=== PATIENT | female | born 1975 | race Caucasian/White ===

== ENCOUNTER 2018-02-14 09:29 | Outpatient (REF) | payer MEDICARE, MEDICAID, SELFPAY ==
[2018-02-15 14:37] LABS: Campylobacter PCR SEE COMMENTS; Salmonella PCR SEE COMMENTS; Shiga Toxin PCR SEE COMMENTS; Shigella/Enteroinvasive Ecoli SEE COMMENTS
== END 2018-02-14 09:49 ==
LOC: NCHCN 09:29
PROVIDERS: PCP Nurse Practitioner; Visit Provider Nurse Practitioner
DX: R11.2 Nausea with vomiting, unspecified (principal); R19.7 Diarrhea, unspecified
CPT/HCPCS: 87329; 87505; 87177; 87324

== ENCOUNTER 2018-03-06 15:40 | Outpatient (CLI) | payer MEDICARE, MEDICAID, SELFPAY ==
[2018-03-06 16:11] LABS: Abs Immature Grans 0.03 k/cumm (0.0-0.09); Absolute Basophil Count 0.02 k/cumm (0.0-0.2); Absolute Eosinophil Count 0.04 k/cumm (0.0-0.7); Absolute Lymphocyte Count 2.78 k/cumm (1.2-3.4); Absolute Neutrophil Count 7.56 k/cumm (1.2-6.7); Basophils % 0.2; Eosinophils % 0.4; HCT 37.2 % (36.0-46.0); HGB 11.8 g/dL (12.0-15.5); Immature Grans % 0.3; Lymphocytes % 25.2; Mean Corp. HGB Concentration 31.7 g/dL (32.0-36.0); Mean Corpuscular Hemoglobin 28.5 pg (27.0-33.0); Mean Corpuscular Volume 89.9 fL (80-95); Mean Platelet Volume 9.3 fL (8.0-11.0); Monocytes % 5.4; Neutrophils % 68.5; Platelet Count 345 x1000/uL (130-400); RBC 4.14 m/cumm (4.00-5.20); RBC Distribution Width 14.2 % (11.7-14.6); White Blood Cell Count 11.04 k/cumm (4.4-10.8)
== END 2018-03-06 16:00 ==
PROVIDERS: Obstetrics & Gynecology; PCP Nurse Practitioner; Visit Provider Psychiatry & Neurology Psychiatry
DX: R10.9 Unspecified abdominal pain (principal)
CPT/HCPCS: 36415; 85025

== ENCOUNTER 2018-03-06 17:10 | Outpatient (REF) | payer MEDICARE, MEDICAID, SELFPAY ==
[2018-03-08 15:56] LABS: Chlamydia Result Negative; GC Result Negative; Specimen Description CERVIX
== END 2018-03-06 17:30 ==
LOC: LBN 17:10
PROVIDERS: Obstetrics & Gynecology; PCP Nurse Practitioner; Visit Provider Psychiatry & Neurology Psychiatry
DX: R10.2 Pelvic and perineal pain (principal)
CPT/HCPCS: 87491; 87591; 87480; 87510; 87660

== ENCOUNTER 2018-03-08 00:46 | Outpatient (CLI) | payer MEDICARE, MEDICAID, SELFPAY ==
--- NOTE | 2018-03-08 13:04 | DI.US_ITS ---
SYMPTOMS/DIAGNOSIS: LOWER ABDOMINAL PAIN AND VAGINAL DISCHARGE, N89.8, R10.9 PELVIC ULTRASOUND: A transabdominal and transvaginal examination was carried out. The uterus measures 7.9 cm in length, 3.4 cm in height and 5.3 cm in width with an endometrial stripe thickness of 3.8 mm. There are a number of small nabothian cysts. Uterine retroversion is demonstrated. The right ovary measures 2.2 x 2 x 2.4 cm, the left ovary 2.7 x 1.8 x 2.4 cm. No abnormality is seen. Incidental note is made of a 1.5 cm gallstone projected over the neck of the gallbladder. SUMMARY: Nabothian cysts are identified in a retroverted uterus. Incidental note is made of cholelithiasis.
== END 2018-03-08 01:06 ==
PROVIDERS: PCP Nurse Practitioner; Visit Provider Obstetrics & Gynecology
DX: R10.30 Lower abdominal pain, unspecified (principal); N88.8 Other specified noninflammatory disorders of cervix uteri; K80.20 Calculus of gallbladder without cholecystitis without obstruction; N85.4 Malposition of uterus
CPT/HCPCS: 76830; 76856

== ENCOUNTER 2018-03-08 14:50 | Outpatient (CLI) | payer MEDICARE, MEDICAID, SELFPAY ==
[2018-03-08 15:34] LABS: Abs Immature Grans 0.02 k/cumm (0.0-0.09); Absolute Basophil Count 0.02 k/cumm (0.0-0.2); Absolute Eosinophil Count 0.05 k/cumm (0.0-0.7); Absolute Lymphocyte Count 2.38 k/cumm (1.2-3.4); Basophils % 0.3; Eosinophils % 0.7; HCT 33.9 % (36.0-46.0); HGB 10.4 g/dL (12.0-15.5); Immature Grans % 0.3; Lymphocytes % 31.4; Mean Corp. HGB Concentration 30.7 g/dL (32.0-36.0); Mean Corpuscular Hemoglobin 27.8 pg (27.0-33.0); Mean Corpuscular Volume 90.6 fL (80-95); Mean Platelet Volume 9.4 fL (8.0-11.0); Monocytes % 5.3; Platelet Count 286 x1000/uL (130-400); RBC 3.74 m/cumm (4.00-5.20); RBC Distribution Width 13.8 % (11.7-14.6); White Blood Cell Count 7.57 k/cumm (4.4-10.8)
== END 2018-03-08 15:10 ==
PROVIDERS: PCP Nurse Practitioner; Visit Provider Obstetrics & Gynecology
DX: R10.9 Unspecified abdominal pain (principal)
CPT/HCPCS: 36415; 76830; 76856; 85025

== ENCOUNTER 2018-03-21 11:06 | Emergency (ER) | payer MEDICARE, MEDICAID, SELFPAY ==
[2018-03-21 11:24] VITALS: BP 114/67; PULSE 100; RESP 16; TEMP 36.6; O2SAT 98
--- NOTE | 2018-03-21 11:42 | DI.US_ITS ---
SYMPTOMS/DIAGNOSIS: VAGINAL BLEEDING, RIGHT PELVIC PAIN PELVIC ULTRASOUND: Transabdominal and transvaginal examination was performed. The uterus measures 6.3 cm long x 4.4 cm AP x 6 cm transverse. The endometrial stripe is within normal limits at 0.3 cm. There are two discrete uterine fibroids identified. The largest measures 1 x 0.8 x 1.4 cm and is located in the anterior body. The smaller, located in the posterior body, measures 0.8 x 0.9 x 1.0 cm. The uterus is retroverted. The right ovary measures 2.5 x 1.6 x 2.1 cm, the left ovary measures 2.7 x 1.4 x 1.6 cm. There are small follicular cysts present. There is normal blood flow. No evidence of a solid mass or torsion is identified. No free pelvic fluid or hydronephrosis is identified. There are cervical nabothian cysts present. IMPRESSION: Fibroid uterus.
[2018-03-21 11:58] LABS: Bilirubin Negative (Negative); Blood Large (Negative); Clarity Sl Cloudy; Glucose Negative (Negative); Ketones Negative (Negative); Leukocyte Esterase Negative (Negative); Nitrite Negative (Negative); Specific Gravity >= 1.030 (1.005-1.025); Urobilinogen 0.2 EU/dL (Up TO 0.2)
[2018-03-21 12:09] LABS: Bacteria Moderate HPF (Negative); C & S Indicated? No/Sq. Contamination; Crystals Negative HPF (Negative); Epithelial Cells Many HPF (Negative); Mucus Moderate (Negative)
[2018-03-21] MEDS: Normal Saline 1,000 ML 1000 ML IV (12:14)
[2018-03-21] MEDS: Ketorolac 15 MG/ML VIAL IVP (12:15)
[2018-03-21 12:22] LABS: Abs Immature Grans 0.01 k/cumm (0.0-0.09); Absolute Basophil Count 0.01 k/cumm (0.0-0.2); Absolute Eosinophil Count 0.03 k/cumm (0.0-0.7); Absolute Lymphocyte Count 1.76 k/cumm (1.2-3.4); Absolute Monocyte Count 0.34 k/cumm (0.11-0.7); Absolute Neutrophil Count 5.95 k/cumm (1.2-6.7); Basophils % 0.1; Eosinophils % 0.4; HCT 34.6 % (36.0-46.0); HGB 10.8 g/dL (12.0-15.5); Immature Grans % 0.1; Lymphocytes % 21.7; Mean Corp. HGB Concentration 31.2 g/dL (32.0-36.0); Mean Corpuscular Hemoglobin 28.3 pg (27.0-33.0); Mean Corpuscular Volume 90.6 fL (80-95); Monocytes % 4.2; Neutrophils % 73.5; Platelet Count 243 x1000/uL (130-400); RBC 3.82 m/cumm (4.00-5.20)
[2018-03-21 12:35] LABS: ALT 25 U/L (12-78); AST 22 U/L (15-37); Albumin 3.2 g/dL (3.4-5.0); Alkaline Phosphatase 93 U/L (46-116); Anion Gap 11.5 mmol/L (3-11); BUN 12 mg/dL (7-18); Bilirubin, Total 0.3 mg/dL (0.2-1.0); CO2 22.5 mmol/L (21.0-32.0); CREATININE 0.93 mg/dL (0.55-1.02); Chloride 105 mmol/L (98-107); Glucose 83 mg/dL (70-100); Lipase 85 U/L (73-393); Sodium 139 mmol/L (136-145); Total Protein 7.1 g/dL (6.4-8.2)
--- NOTE | 2018-03-21 14:15 | W.ED.GENAD ---
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 Clinical Impression: Vaginal bleeding, Fibroid Primary Care Provider: Nemo Carl ED Provider: Khoa Riggins Home Meds and New Rx's Prescriptions: New ibuprofen [Motrin IB] 200 MG tablet 800 mg PO Q6H 5 Days Qty: 80 RF: 0 No Action acetaminophen-codeine [Tylenol-Codeine #3] 300-30 mg tablet 1 tab PO Q6H PRN (Reason: pain) Qty: 8 RF: 0 polyethylene glycol 3350 [Miralax] 17 gram powder in packet 17 gm PO DAILY Qty: 30 RF: 1 norgestimate-ethinyl estradiol [Sprintec (28)] 1 EACH tablet 1 tab-cap PO DAILY Qty: 3 RF: 4 promethazine 25 MG tablet 25 mg PO Q6H PRNQty: 10 RF: 0 bupropion HCl 150 MG tablet extended release 12 hr 450 mg PO DAILY RF: 0 gabapentin 600 MG tablet 600 mg PO TID RF: 0 sucralfate 1 GM tablet 1 gm PO BID RF: 0 sumatriptan succinate [Imitrex] 25 MG tablet 50 mg PO DIRECTED PRNRF: 0 ondansetron HCl 4 MG tablet 4 mg PO TID PRNRF: 0 clonazepam 0.5 MG tablet 0.5 mg PO BID PRNRF: 0 propranolol 10 MG tablet 20 mg PO BID RF: 0 mirtazapine 30 MG tablet 30 mg PO DAILY RF: 0 fluticasone [Flonase Allergy Relief] 9.9 ML spray,suspension 9.9 ml NS DAILY RF: 0 prazosin 2 MG capsule 2 mg PO DAILY RF: 0 Discharge Instructions Instructions: Dysfunctional Uterine Bleeding (ED) Additional Instructions: Please take the medication as directed. Please follow-up with your obstetrics tissue technician tomorrow. If you notice any worsening of your symptoms, or any new symptoms such as vomiting, diarrhea, fever, chills, shortness of breath, chest pain, numbness, weakness, or fainting , please return immediately to the emergency department for reevaluation. Please follow up with your primary care provider as soon as possible for reassessment and reevaluation. As always, it was a pleasure participating in your medical care today. Referrals: Nemo Carl [Primary Care Provider] - Discharge Data Discharge Date/Time-TO BE ENTERED AT DEPARTURE: 03/21/18 14:41 Medical Decision Making This is a pleasant 22-year-old female who presents with 1 day vaginal bleeding. She regularly takes oral contraceptives and does not on her placebo week. Physical exam demonstrated normal vital signs, no signs of tachycardia. Hemoglobin was stable at 10.8, test was negative. Physical exam did demonstrate vaginal bleeding, minimal cervical right and left sided tenderness on bimanual exam. No signs of guarding or rebound. No evidence of lower abdominal tenderness on exam. Negative obturator and psoas signs. No pain at McBurney's point. Ultrasound was ordered and there was 2 discrete uterine fibroids that were noted. Endometrial stripe was within normal limits. A small right and left sided ovary were noted with small follicular cysts. No evidence of torsion. With the patient's vaginal bleeding mild, her age of 42, and her symptomatology I feel that she has been appropriately resuscitated and evaluated here. We will hold off on giving any TXA secondary to the increase in thromboembolic event secondary to her estrogen use. With her bleeding very mild, her hemoglobin stable, and her vital signs stable I feel that close follow-up is both reasonable and certainly indicated. She has called her obstetrics tissue technician and has an appointment scheduled for tomorrow morning. We have a long discussion regarding red flags which to return the patient understands. I have extensively reviewed the treatment plan and discharge instructions with the patient and their family. I have addressed all patient concerns at this time. The patient and family was made aware of what symptoms to monitor for that would warrant a return to the emergency department. Discussed the plan with the patient and family, they demonstrate verbal understanding and agreement with our assessment and plan at this time. PELVIC ULTRASOUND: Transabdominal and transvaginal examination was performed. The uterus measures 6.3 cm long x 4.4 cm AP x 6 cm transverse. The endometrial stripe is within normal limits at 0.3 cm. There are two discrete uterine fibroids identified. The largest measures 1 x 0.8 x 1.4 cm and is located in the anterior body. The smaller, located in the posterior body, measures 0.8 x 0.9 x 1.0 cm. The uterus is retroverted. The right ovary measures 2.5 x 1.6 x 2.1 cm, the left ovary measures 2.7 x 1.4 x 1.6 cm. There are small follicular cysts present. There is normal blood flow. No evidence of a solid mass or torsion is identified. No free pelvic fluid or hydronephrosis is identified. There are cervical nabothian cysts present. IMPRESSION: Fibroid uterus. HPI General Date/Time Provider Initiated Documentation: 03/21/18 11:18. HPI Narrative: This is a pleasant 42-year-old female with a past medical history of PTSD, pelvic pain, migraines and depression who presents today for evaluation of vaginal bleeding. The bleeding started this morning. She normally takes oral contraceptives and has been taking this religiously and has not missed any doses. She is not currently on the placebo phase. She does have some mild pelvic pain which began last night, which is in the both the right pelvis and the left pelvis. She has had some associated vomiting but denies any diarrhea. She denies any recent intercourse, any recent STDs, any previous vaginal discharge. She denies any pelvic trauma. She has no other complaints at this time. She denies any aggravating or relieving symptoms. She denies seeing any tissue coming out in the vaginal bleeding, she does admit to seeing mild clots. She denies any IV or illicit drug use. Related Data Home Medications Medication Instructions Recorded Confirmed bupropion HCl 450 mg PO DAILY 03/14/17 03/21/18 clonazepam 0.5 mg PO BID PRN 03/14/17 03/21/18 fluticasone [Flonase Allergy 9.9 ml NS DAILY 03/14/17 03/21/18 Relief] gabapentin 600 mg PO TID 03/14/17 03/21/18 mirtazapine 30 mg PO DAILY 03/14/17 03/21/18 ondansetron HCl 4 mg PO TID PRN 03/14/17 03/21/18 prazosin 2 mg PO DAILY 03/14/17 03/21/18 propranolol 20 mg PO BID 03/14/17 03/21/18 sucralfate 1 gm PO BID 03/14/17 03/21/18 sumatriptan succinate [Imitrex] 50 mg PO DIRECTED PRN 03/14/17 03/21/18 promethazine 25 mg PO Q6H PRN #10 tab 01/06/18 03/21/18 norgestimate-ethinyl estradiol 1 tab-cap PO DAILY #3 pack 01/30/18 03/21/18 [Sprintec] acetaminophen 300 mg-codeine 30 mg 1 tab PO Q6H PRN #8 tab 03/06/18 03/21/18 tablet polyethylene glycol 3350 17 gram 17 gm PO DAILY #30 each 03/16/18 03/21/18 oral powder packet ibuprofen [Motrin Ib] 800 mg PO Q6H 5 Days #80 tab 03/21/18 Previous Rx's Medication Instructions Recorded promethazine 25 mg PO Q6H PRN #10 tab 01/06/18 norgestimate-ethinyl estradiol 1 tab-cap PO DAILY #3 pack 01/30/18 [Sprintec] acetaminophen 300 mg-codeine 30 mg 1 tab PO Q6H PRN #8 tab 03/06/18 tablet polyethylene glycol 3350 17 gram 17 gm PO DAILY #30 each 03/16/18 oral powder packet ibuprofen [Motrin Ib] 800 mg PO Q6H 5 Days #80 tab 03/21/18 Allergies Allergy/AdvReac Type Severity Reaction Status Date / Time Penicillins AdvReac Intermediate difficulty Unverified 03/21/18 11:31 breathing pain med AdvReac Unknown Uncoded 03/21/18 11:31 General Stated 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 3.ENT: Atraumatic external nose and ears. Moist MM. Neck: Symmetric, trachea midline, No thyromegaly. 4.CVS: +S1/S2, No murmurs or gallops. Peripheral pulses 2+ and equal in all extremities. Brisk capillary refill in all extremities. 5.RESP: Unlabored respiratory effort. Clear to auscultation bilaterally. No wheezes rales or rhonchi 6.GI: Soft, Nontender/Nondistended, No hepatosplenomegaly. No guarding or rebound. No right lower quadrant abdominal tenderness. No left lower quadrant abdominal tenderness. 7.MSK: Normocephalic/Atraumatic, Extremities w/o deformity or ttp No cyanosis or clubbing, Normal movement of all extremities 8.Skin: Warm, Dry. No rashes or lesions. 9.Neuro: hand upper and bottom lacer II-XII grossly intact. Sensation grossly intact, no focal neurologic deficits. 10.Psych: (AAO) x3. Appropriate mood and affect Gynecological exam: Vaginal exam was performed with female nurse at bedside. Cervix demonstrated no significant abnormalities, was mild bleeding coming from the cervix. Cervix was closed. Bimanual exam demonstrated mild tenderness on the right, as well as the left. Minimal cervical motion tenderness. No evidence of lacerations or trauma. Course Vital Signs Temperature 36.6 C 03/21/18 11:24 Pulse 100 H 03/21/18 11:24 Respiratory Rate 16 03/21/18 11:24 Blood Pressure 114/67 03/21/18 11:24 Pulse Oximetry 98 03/21/18 11:24 Temperature 36.6 C 03/21/18 11:24 Temperature Source Temporal Artery Scan 03/21/18 11:24 Pulse 100 H 03/21/18 11:24 Respiratory Rate 16 03/21/18 11:24 Respiratory Effort Non-Labored 03/21/18 11:26 Blood Pressure 114/67 03/21/18 11:24 Blood Pressure Position Sitting 03/21/18 11:24 Pulse Oximetry 98 03/21/18 11:24 Oxygen Delivery Method Room Air 03/21/18 11:24 Oxygen Flow Rate 0 03/21/18 11:24 Pain Level 10 03/21/18 12:15 Lab/Test Results Lab/Test Results: Laboratory Tests Range/Units 03/21/18 03/21/18 03/21/18 11:50 12:05 12:05 WBC (4.4-10.8) k/cumm 8.10 RBC (4.00-5.20) m/cumm 3.82 L Hgb (12.0-15.5) g/dL 10.8 L Hct (36.0-46.0) % 34.6 L MCV (80-95) fL 90.6 MCH (27.0-33.0) pg 28.3 MCHC (32.0-36.0) g/dL 31.2 L RDW (11.7-14.6) % 14.0 Plt Count (130-400) x1000/uL 243 MPV (8.0-11.0) fL 10.0 Immature Gran % 0.1 Neutrophils % 73.5 Lymphocytes % 21.7 Monocytes % 4.2 Eosinophils % 0.4 Basophils % 0.1 Absolute Neutrophils (1.2-6.7) k/cumm 5.95 Absolute Lymphocytes (1.2-3.4) k/cumm 1.76 Absolute Monocytes (0.11-0.7) k/cumm 0.34 Absolute Eosinophils (0.0-0.7) k/cumm 0.03 Absolute Basophils (0.0-0.2) k/cumm 0.01 Sodium (136-145) mmol/L 139 Potassium (3.5-5.1) mmol/L 4.0 Chloride (98-107) mmol/L 105 Carbon Dioxide (21.0-32.0) mmol/L 22.5 Anion Gap (3-11) mmol/L 11.5 H BUN (7-18) mg/dL 12 Creatinine (0.55-1.02) mg/dL 0.93 Estimated GFR/1.73 m2 (mL/min/1.73m2) >= 60.00 Glucose (70-100) mg/dL 83 Calcium (8.5-10.1) mg/dL 8.0 L Total Bilirubin (0.2-1.0) mg/dL 0.3 AST (15-37) U/L 22 ALT (12-78) U/L 25 Alkaline Phosphatase (46-116) U/L 93 Total Protein (6.4-8.2) g/dL 7.1 Albumin (3.4-5.0) g/dL 3.2 L Lipase (73-393) U/L 85 Urine Color (Yellow) Yellow Urine Clarity Sl cloudy Urine pH (5-8) 6.0 Ur Specific Sandy (1.005-1.025) >= 1.030 H Urine Protein (Negative) mg/dL Negative Urine Ketones (Negative) mg/dL Negative Urine Blood (Negative) Large H Urine Nitrite (Negative) Negative Urine Bilirubin (Negative) Negative Urine Urobilinogen (Up TO 0.2) EU/dL 0.2 Ur Leukocyte Esterase (Negative) Negative Urine RBC Not Applicable Urine WBC (0-5) HPF 10-20 Ur Epithelial Cells (Negative) HPF Many Urine Crystals (Negative) HPF Negative Urine Bacteria (Negative) HPF Moderate Urine Mucus (Negative) Moderate Ur Culture Indicated? No/sq. contamination Urine Glucose (Negative) mg/dL Negative Patient ABO/Rh Antibody Screen Range/Units 03/21/18 12:05 WBC (4.4-10.8) k/cumm RBC (4.00-5.20) m/cumm Hgb (12.0-15.5) g/dL Hct (36.0-46.0) % MCV (80-95) fL MCH (27.0-33.0) pg MCHC (32.0-36.0) g/dL RDW (11.7-14.6) % Plt Count (130-400) x1000/uL MPV (8.0-11.0) fL Immature Gran % Neutrophils % Lymphocytes % Monocytes % Eosinophils % Basophils % Absolute Neutrophils (1.2-6.7) k/cumm Absolute Lymphocytes (1.2-3.4) k/cumm Absolute Monocytes (0.11-0.7) k/cumm Absolute Eosinophils (0.0-0.7) k/cumm Absolute Basophils (0.0-0.2) k/cumm Sodium (136-145) mmol/L Potassium (3.5-5.1) mmol/L Chloride (98-107) mmol/L Carbon Dioxide (21.0-32.0) mmol/L Anion Gap (3-11) mmol/L BUN (7-18) mg/dL Creatinine (0.55-1.02) mg/dL Estimated GFR/1.73 m2 (mL/min/1.73m2) Glucose (70-100) mg/dL Calcium (8.5-10.1) mg/dL Total Bilirubin (0.2-1.0) mg/dL AST (15-37) U/L ALT (12-78) U/L Alkaline Phosphatase (46-116) U/L Total Protein (6.4-8.2) g/dL Albumin (3.4-5.0) g/dL Lipase (73-393) U/L Urine Color (Yellow) Urine Clarity Urine pH (5-8) Ur Specific Sandy (1.005-1.025) Urine Protein (Negative) mg/dL Urine Ketones (Negative) mg/dL Urine Blood (Negative) Urine Nitrite (Negative) Urine Bilirubin (Negative) Urine Urobilinogen (Up TO 0.2) EU/dL Ur Leukocyte Esterase (Negative) Urine RBC Urine WBC (0-5) HPF Ur Epithelial Cells (Negative) HPF Urine Crystals (Negative) HPF Urine Bacteria (Negative) HPF Urine Mucus (Negative) Ur Culture Indicated? Urine Glucose (Negative) mg/dL Patient ABO/Rh A Positive Antibody Screen Negative
[2018-03-21 14:40] VITALS: BP 118/67; PULSE 74; RESP 18; TEMP 36.8; O2SAT 98
== END 2018-03-21 14:41 | disposition home or self-care (01) ==
PROVIDERS: Emergency Provider Student in an Organized Health Care Education/Training Program; PCP Nurse Practitioner
DX: N93.9 Abnormal uterine and vaginal bleeding, unspecified (principal); D25.9 Leiomyoma of uterus, unspecified; R10.2 Pelvic and perineal pain
CPT/HCPCS: 36415; 80053; 81025; 83690; 86850; 86900; 86901; 96361; 96374; 99284; 76830; 76856; 81003; 81015; 85025; 99285; J1885

== ENCOUNTER 2018-12-27 10:21 | Emergency (ER) | payer MEDICARE, SELFPAY ==
[2018-12-27] VITALS (32 sets, daily range): BP systolic 121–152; BP diastolic 69–97; PULSE 83–123; RESP 12–30; TEMP 36.2; O2SAT 92–100
--- NOTE | 2018-12-27 10:34 | ED.GENADUL_ITS ---
Discharge Plan Disposition Patient Disposition: HOME Condition: Improving Discharge Details Chief Complaint: DrugWithdr Clinical Impression: Anxiety, Medication refill, Vomiting and diarrhea Primary Care Provider: Nemo Carl ED Provider: Eunice Hu Home Meds and New Rx's Prescriptions: Continued acetaminophen-codeine [Tylenol-Codeine #3] 300-30 mg tablet 1 tab PO Q6H PRN (Reason: pain) Qty: 8 RF: 0 polyethylene glycol 3350 [Miralax] 17 gram powder in packet 17 gm PO DAILY Qty: 30 RF: 1 norgestimate-ethinyl estradiol [Sprintec (28)] 1 EACH tablet 1 tab-cap PO DAILY Qty: 3 RF: 4 Prilosec OTC 20 mg Tablet,Delayed Release (Dr/Ec) 20 mg PO DAILY RF: 0 bupropion HCl 150 MG tablet extended release 12 hr 450 mg PO DAILY Qty: 30 RF: 0 propranolol 10 MG tablet 20 mg PO BID Qty: 30 RF: 0 mirtazapine 30 MG tablet 30 mg PO DAILY Qty: 30 RF: 0 promethazine 25 MG tablet 25 mg PO Q6H PRN (Reason: nausea and vomiting) Qty: 10 RF: 0 prazosin 2 MG capsule 2 mg PO DAILY Qty: 30 RF: 0 gabapentin 600 MG tablet 600 mg PO TID RF: 0 sucralfate 1 GM tablet 1 gm PO BID RF: 0 sumatriptan succinate [Imitrex] 25 MG tablet 50 mg PO DIRECTED PRNRF: 0 ondansetron HCl 4 MG tablet 4 mg PO TID PRNRF: 0 clonazepam 0.5 MG tablet 0.5 mg PO BID PRNRF: 0 fluticasone propionate [Flonase Allergy Relief] 9.9 ML spray,suspension 9.9 ml NS DAILY RF: 0 Discharge Instructions Instructions: Acute Nausea and Vomiting (ED), Anxiety (ED), Medicine Refill (ED) Additional Instructions: Call [facility] today to schedule follow-up appointment for reevaluation and for continued management of your medications. Return to the emergency department if you develop any worsening or new concerning symptoms. Discharge Data Discharge Date/Time-TO BE ENTERED AT DEPARTURE: 12/27/18 14:41 Discharge Physician: Eunice Hu Medical Decision Making 43yo F with a history of anxiety, depression, borderline personality disorder, PTSD and migraines who presents with shaking, insomnia, vomiting and diarrhea for the past week after running out of most of her medications except gabapentin and Prilosec 4 weeks ago while in the process of changing doctors. Blood pressure hypertensive heart rate tachycardic. Improved to low 100s upon my evaluation. Denies any complaint of chest pain or shortness of breath so doubt PE, dissection or ACS. Patient appears very anxious and tearful but she denies any suicidal homicidal ideation. Differential diagnosis can include anxiety, medication withdrawal, dehydration, electrolyte abnormality. Will check screening labs, EKG, urine test and give fluids and a dose of Ativan and reassess. EKG notes a rate of 96, sinus with no acute ST-T wave ischemic changes. 1130 -- pt states she feels a little better. Appears more relaxed. Still nauseous -dose of compazine ordered. Labs reviewed. CO2 20, AG 14. Glucose 102. Remainder of labs unremarkable. Urine preg negative. 1315 -- pt feels much better. Vitals within normal limits. Will recheck BMP. Pt able to drink water and no vomiting. 1400 -- repeat bmp anion gap near normalized. Pt states she feels good to go home but c/o some return of nausea. Pt given zofran and improved. HR 90s. She appears much more comfortable. Her friends are picking her up. Will give scripts for her meds needing to be filled as well as a few tabs of ativan. She is instructed to f/u with [facility] for re-evaluation and continued medication management. Meds refilled Wellbutrin, mirtazapine, prazosin, promethazine, propranolol. She was also given 3 tabs of Ativan 0.5 mg. Medical Records Medical records reviewed: Yes I reviewed the patient's medical records. Lab Data Lab results reviewed: Yes I reviewed the patient's lab results. Laboratory Tests Range/Units 12/27/18 12/27/18 12/27/18 10:55 10:55 13:20 WBC (4.4-10.8) k/cumm 6.93 RBC (4.00-5.20) m/cumm 4.47 Hgb (12.0-15.5) g/dL 12.1 Hct (36.0-46.0) % 37.6 MCV (80-95) fL 84.1 MCH (27.0-33.0) pg 27.1 MCHC (32.0-36.0) g/dL 32.2 RDW (11.7-14.6) % 16.1 H Plt Count (130-400) x1000/uL 266 MPV (8.0-11.0) fL 9.6 Immature Gran % 0.0 Neutrophils % 66.2 Lymphocytes % 27.8 Monocytes % 5.2 Eosinophils % 0.7 Basophils % 0.1 Absolute Neutrophils (1.2-6.7) k/cumm 4.58 Absolute Lymphocytes (1.2-3.4) k/cumm 1.93 Absolute Monocytes (0.11-0.7) k/cumm 0.36 Absolute Eosinophils (0.0-0.7) k/cumm 0.05 Absolute Basophils (0.0-0.2) k/cumm 0.01 Sodium (136-145) mmol/L 139 139 Potassium (3.5-5.1) mmol/L 3.7 3.9 Chloride (98-107) mmol/L 104 107 Carbon Dioxide (21.0-32.0) mmol/L 20.6 L 20.3 L Anion Gap (3-11) mmol/L 14.4 H 11.7 H BUN (7-18) mg/dL 12 10 Creatinine (0.55-1.02) mg/dL 0.79 0.63 Estimated GFR/1.73 m2 (mL/min/1.73m2) >= 60.00 >= 60.00 Glucose (70-100) mg/dL 102 H 83 Calcium (8.5-10.1) mg/dL 9.3 7.9 L ECG Data Attestation: I personally reviewed and interpreted this ECG (s) as follows: Interpretation: Rate of 96, sinus, no acute ST elevation or depression. QTc 430. QRS 90. HPI General Mode of arrival: ambulatory . Date/Time Provider Initiated Documentation: 12/27/18 10:24 . Limitations to Documentation: no limitations . Information obtained by: patient . HPI Narrative: Pt is a 43yo F who presents to the ED w/ a c/o shaking, nausea, vomiting, insomnia over the past week, worse over the past 2 days. Patient attributes her symptoms to stopping all of her medications 4 weeks ago when she ran out. Patient states she is in the process of changing her primary care doctor. Patient states she had been seeing a doctor at [place] but was planning on moving but changed her mind and now plans to follow-up with [facility] but has not yet made an appointment. Patient states she has run out of her Wellbutrin, clonazepam, Remeron, prazosin, Phenergan, propranolol and Imitrex. Patient denies a history of hypertension and states she takes most of her medications for anxiety, depression and migraines. She denies any recent travel, recent surgery, leg pain or swelling, shortness of breath, chest pain, abdominal pain, neck pain, sore throat, cough, urinary symptoms. Related Data Home Medications Medication Instructions Recorded Confirmed clonazepam 0.5 mg PO BID PRN 03/14/17 12/27/18 fluticasone propionate [Flonase 9.9 ml NS DAILY 03/14/17 12/27/18 Allergy Relief] gabapentin 600 mg PO TID 03/14/17 12/27/18 ondansetron HCl 4 mg PO TID PRN 03/14/17 12/27/18 sucralfate 1 gm PO BID 03/14/17 12/27/18 sumatriptan succinate [Imitrex] 50 mg PO DIRECTED PRN 03/14/17 12/27/18 norgestimate-ethinyl estradiol 1 tab-cap PO DAILY #3 pack 01/30/18 12/27/18 [Sprintec (28)] acetaminophen 300 mg-codeine 30 mg 1 tab PO Q6H PRN #8 tab 03/06/18 12/27/18 tablet polyethylene glycol 3350 17 gram 17 gm PO DAILY #30 each 03/16/18 12/27/18 oral powder packet Prilosec OTC 20 mg PO DAILY 12/27/18 12/27/18 bupropion HCl 450 mg PO DAILY #30 tab 12/27/18 mirtazapine 30 mg PO DAILY #30 tab 12/27/18 prazosin 2 mg PO DAILY #30 cap 12/27/18 promethazine 25 mg PO Q6H PRN #10 tab 12/27/18 propranolol 20 mg PO BID #30 tab 12/27/18 Previous Rx's Medication Instructions Recorded norgestimate-ethinyl estradiol 1 tab-cap PO DAILY #3 pack 01/30/18 [Sprintec (28)] acetaminophen 300 mg-codeine 30 mg 1 tab PO Q6H PRN #8 tab 03/06/18 tablet polyethylene glycol 3350 17 gram 17 gm PO DAILY #30 each 03/16/18 oral powder packet bupropion HCl 450 mg PO DAILY #30 tab 12/27/18 mirtazapine 30 mg PO DAILY #30 tab 12/27/18 prazosin 2 mg PO DAILY #30 cap 12/27/18 promethazine 25 mg PO Q6H PRN #10 tab 12/27/18 propranolol 20 mg PO BID #30 tab 12/27/18 Allergies Allergy/AdvReac Type Severity Reaction Status Date / Time Penicillins AdvReac Intermediate difficulty Unverified 12/27/18 10:29 breathing bees Allergy Uncoded 12/27/18 10:29 pain med AdvReac Unknown Uncoded 12/27/18 10:29 General Stated Complaint: DrugWithdr JAYLON: 3 Review of Systems Review of Systems All systems reviewed & are unremarkable except as noted in HPI and below Constitutional Reports as per HPI, Denies chills, Reports difficulty sleeping, Denies fever(s), Reports headache(s) and Reports poor appetite Eyes Denies blurry vision ENT Denies dizziness, Reports headache(s), Denies sore throat and Denies throat swelling Cardiovascular Denies chest pain and Denies dyspnea Respiratory Denies cough and Denies dyspnea Gastrointestinal Denies abdominal pain, Reports diarrhea and Reports vomiting Genitourinary Denies hematuria and Denies dysuria Musculoskeletal Denies back pain and Denies numbness Integumentary/Breasts Denies lesions and Denies rash Neurologic Denies dizziness, Reports headache(s), Denies focal weakness and Denies numbness Allergic/Immunologic Denies throat swelling [facility] Medical History ADD (attention deficit disorder) (Acute) Anxiety (Acute 12/29/17) Borderline personality disorder (Acute 12/29/17) Depression (Acute 12/29/17) Migraine without status migrainosus, not intractable (Acute 12/29/17) Pelvic pain (Acute) Pelvic pain (Acute 12/29/17) PTSD (post-traumatic stress disorder) (Acute 12/29/17) Surgical History section (Chronic ~2000) History of tonsillectomy (Chronic) Social History Smoking/Tobacco Use Status: Never Alcohol Intake: never Drug use: Never current occupation: UnEmployed Do you feel safe in your relationship?: Yes Exam Const General: cooperative, healthy appearing and anxious Orientation: alert, awake and oriented x3 HENMT Head: normal to inspection Ears: hearing grossly normal bilaterally, external ears normal and TM's normal bilaterally General nose exam: external nose normal Face and sinus: normal facial exam Mouth: oral mucosae normal Teeth and gingiva: dentition normal Throat: posterior oropharynx normal Eyes General: appearance normal, both eyes and all related structures Eyelids: eyelids normal Pupils: PERRL EOM: EOM intact bilaterally Neck Neck: normal visual inspection Lymphatic: no lymphadenopathy noted Chest Chest: normal inspection of the chest Resp Effort & Inspection: normal respiratory effort and able to speak in complete sentences Auscultation: clear to auscultation bilaterally Cardio Rate: regular rate Rhythm: regular rhythm GI Inspection: normal to inspection Palpation: soft, not firm, no guarding, no hepatosplenomegaly, no masses and nontender Auscultation: normal bowel sounds Back/Spine/Pelvis Back: no CVA tenderness Skin General skin exam: no rashes or lesions noted Neuro General: alert, awake and CN's II-XI intact bilaterally Cognition: normal cognition Speech: speech normal Gait: normal gait Motor: muscle tone normal throughout and strength 5/5 throughout Sensory Exam: no sensory deficits noted Extrem General: normal to inspection, full ROM, normal capillary refill and no edema Psych Appearance: grossly normal Mental Status: mental status grossly normal Speech and Movement: speech and movement normal Mood: anxious mood Affect: anxious affect Thought Process: normal Course Vital Signs Temperature 97.2 F L 12/27/18 10:26 Pulse 123 H 12/27/18 10:26 Respiratory Rate 14 12/27/18 10:26 Blood Pressure 152/96 H 12/27/18 10:26 Pulse Oximetry 97 12/27/18 10:26 Temperature 97.2 F L 12/27/18 10:26 Temperature Source Tympanic 12/27/18 10:26 Pulse 123 H 12/27/18 10:26 Respiratory Rate 14 12/27/18 10:26 Respiratory Effort Non-Labored 12/27/18 10:26 Blood Pressure 152/96 H 12/27/18 10:26 Blood Pressure Position Supine 12/27/18 10:26 Pulse Oximetry 97 12/27/18 10:26 Oxygen Delivery Method Room Air 12/27/18 10:26 Oxygen Flow Rate 0 12/27/18 10:26 Pain Level 5 12/27/18 10:26
[2018-12-27] MEDS: Normal Saline 1,000 ML 1000 ML IV (11:00)
[2018-12-27] MEDS: LORazepam 2 MG/ML VIAL 1 MG IVP (11:01)
[2018-12-27 11:07] LABS: Absolute Basophil Count 0.01 k/cumm (0.0-0.2); Absolute Eosinophil Count 0.05 k/cumm (0.0-0.7); Absolute Lymphocyte Count 1.93 k/cumm (1.2-3.4); Absolute Monocyte Count 0.36 k/cumm (0.11-0.7); Absolute Neutrophil Count 4.58 k/cumm (1.2-6.7); Basophils % 0.1; Eosinophils % 0.7; HCT 37.6 % (36.0-46.0); HGB 12.1 g/dL (12.0-15.5); Lymphocytes % 27.8; Mean Corp. HGB Concentration 32.2 g/dL (32.0-36.0); Mean Corpuscular Hemoglobin 27.1 pg (27.0-33.0); Mean Corpuscular Volume 84.1 fL (80-95); Mean Platelet Volume 9.6 fL (8.0-11.0); Monocytes % 5.2; Neutrophils % 66.2; Platelet Count 266 x1000/uL (130-400); RBC 4.47 m/cumm (4.00-5.20); RBC Distribution Width 16.1 % (11.7-14.6); White Blood Cell Count 6.93 k/cumm (4.4-10.8)
[2018-12-27 11:19] LABS: Anion Gap 14.4 mmol/L (3-11); BUN 12 mg/dL (7-18); CO2 20.6 mmol/L (21.0-32.0); CREATININE 0.79 mg/dL (0.55-1.02); Calcium 9.3 mg/dL (8.5-10.1); Chloride 104 mmol/L (98-107); Glucose 102 mg/dL (70-100); Potassium 3.7 mmol/L (3.5-5.1); Sodium 139 mmol/L (136-145)
[2018-12-27] MEDS: Prochlorperazine 10 MG/2 ML VIAL IVP (11:33)
[2018-12-27 13:39] LABS: Anion Gap 11.7 mmol/L (3-11); BUN 10 mg/dL (7-18); CO2 20.3 mmol/L (21.0-32.0); CREATININE 0.63 mg/dL (0.55-1.02); Calcium 7.9 mg/dL (8.5-10.1); Chloride 107 mmol/L (98-107); Glucose 83 mg/dL (70-100); Potassium 3.9 mmol/L (3.5-5.1); Sodium 139 mmol/L (136-145)
[2018-12-27] MEDS: Ondansetron O.D.T. 4 MG TABEF PO (14:34)
[2018-12-27] MEDS: LORazepam 0.5 MG TAB 1.5 MG PO (14:34)
== END 2018-12-27 14:41 | disposition home or self-care (01) ==
PROVIDERS: Emergency Provider Physician Assistant; PCP Nurse Practitioner
DX: F41.8 Other specified anxiety disorders (principal); I10 Essential (primary) hypertension; R11.2 Nausea with vomiting, unspecified; R00.0 Tachycardia, unspecified; R19.7 Diarrhea, unspecified; F43.10 Post-traumatic stress disorder, unspecified; Z91.14 Patient's other noncompliance with medication regimen
CPT/HCPCS: 36415; 80048; 93005; 96361; 96374; 96375; 99284; 85025; 93010; J0780; J2060

== ENCOUNTER 2018-12-31 05:25 | Emergency (ER) | payer MEDICARE, SELFPAY ==
[2018-12-31] VITALS (51 sets, daily range): BP systolic 105–138; BP diastolic 66–93; PULSE 73–85; RESP 22; TEMP 36.8; O2SAT 94–99
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
--- NOTE | 2018-12-31 05:16 | DI.CT_ITS ---
SYMPTOM/DIAGNOSIS: OVERDOSE AND CONFUSION CT BRAIN: Noncontrast examination. No priors There is mild patient motion artifact which does degrade image quality. There is normal solorzano/white matter differentiation. No acute territorial infarct, hemorrhage, midline shift or mass effect is identified. The ventricles are intact. The basilar cisterns are patent. The visualized paranasal sinuses are clear. No fluid levels are seen. The mastoid air cells are well pneumatized. The calvarium is intact. IMPRESSION: No acute intracranial process
[2018-12-31] MEDS: Normal Saline 1,000 ML 1000 ML IV (05:35)
[2018-12-31 05:44] LABS: Abs Immature Grans 0.01 k/cumm (0.0-0.09); Absolute Basophil Count 0.01 k/cumm (0.0-0.2); Absolute Eosinophil Count 0.08 k/cumm (0.0-0.7); Absolute Lymphocyte Count 1.89 k/cumm (1.2-3.4); Absolute Neutrophil Count 4.25 k/cumm (1.2-6.7); Basophils % 0.2; Eosinophils % 1.2; HCT 31.8 % (36.0-46.0); HGB 10.2 g/dL (12.0-15.5); Immature Grans % 0.2; Lymphocytes % 28.5; Mean Corp. HGB Concentration 32.1 g/dL (32.0-36.0); Mean Corpuscular Hemoglobin 27.6 pg (27.0-33.0); Mean Corpuscular Volume 86.2 fL (80-95); Mean Platelet Volume 9.7 fL (8.0-11.0); Neutrophils % 63.9; Platelet Count 253 x1000/uL (130-400); RBC 3.69 m/cumm (4.00-5.20); RBC Distribution Width 16.9 % (11.7-14.6); White Blood Cell Count 6.64 k/cumm (4.4-10.8)
--- NOTE | 2018-12-31 06:04 | DI.VRAD_ITS ---
EXAM: CT Head Without Contrast EXAM DATE/TIME: 12/31/2018 5:20 AM CLINICAL HISTORY: 43 years old, female; Altered mental status/memory loss; Patient HX: Overdose and confusion TECHNIQUE: Imaging protocol: Computed tomography images of the head without contrast. Coronal and sagittal reformatted images were created and reviewed. COMPARISON: No relevant prior studies available. FINDINGS: Brain: Normal. No hemorrhage. Unremarkable white matter. No mass effect. Ventricles: Normal. No ventriculomegaly. Bones/joints: Unremarkable. No acute fracture. Sinuses: Visualized sinuses are unremarkable. No fluid levels. Mastoid air cells: Visualized mastoid air cells are well aerated. No mastoid effusion. Soft tissues: Unremarkable. IMPRESSION: No acute intracranial abnormality. Dictated and Authenticated by: Wero Larson MD. Ordering:BERTHA Couch MD
[2018-12-31 06:27] LABS: Acetaminophen 6 ug/mL (10-30); Salicylate < 2.8 mg/dL (2.8-20.0)
[2018-12-31 06:28] LABS: Bilirubin Negative (Negative); Blood Trace-lysed (Negative); Clarity Clear (Clear); Glucose Negative (Negative); Ketones Negative (Negative); Leukocyte Esterase Negative (Negative); Nitrite Negative (Negative); Specific Gravity >= 1.030 (1.005-1.025); Urobilinogen 0.2 EU/dL (Up TO 0.2); pH 5.5 (5-8)
[2018-12-31 06:33] LABS: *AMPHETAMINES SCREEN URINE POSITIVE (Negative); *BARBITURATES SCREEN URINE Negative (Negative); *BENZODIAZEPINES SCREEN URINE Negative (Negative); Cannabinoids THC Negative (Negative); Cocaine Screen,Urine Negative (Negative); METHADONE URINE SCREEN Negative (Negative); OPIATES URINE SCREEN Negative (Negative); Tricyclic Antidepressants POSITIVE (Negative)
[2018-12-31 06:37] LABS: ALT 17 U/L (12-78); AST 7 U/L (15-37); Albumin 3.2 g/dL (3.4-5.0); Alkaline Phosphatase 54 U/L (46-116); Anion Gap 12.1 mmol/L (3-11); BUN 14 mg/dL (7-18); Bilirubin, Total 0.1 mg/dL (0.2-1.0); CO2 20.9 mmol/L (21.0-32.0); CREATININE 0.73 mg/dL (0.55-1.02); Chloride 111 mmol/L (98-107); Glucose 131 mg/dL (70-100); Potassium 3.9 mmol/L (3.5-5.1); Sodium 144 mmol/L (136-145); TSH (W/Ref FT4) 0.39 uIU/mL (0.358-3.74); Total Protein 6.3 g/dL (6.4-8.2)
[2018-12-31 06:37] LABS: Bacteria Few HPF (Negative); C & S Indicated? No/Sq. Contamination; Casts Negative LPF (Negative); Crystals Negative HPF (Negative); Epithelial Cells Moderate HPF (Negative); Mucus Moderate (Negative); RBC 0-2 (0-2); WBC 0-2 HPF (0-5)
[2018-12-31 06:38] LABS: ETHANOL BLOOD < 3.0 mg/dL (<3)
[2018-12-31] MEDS: Normal Saline 1,000 ML 125 ML IV (06:45)
[2018-12-31] MEDS: Omnipaque 350 MG/ML 100 ML BTL IJ (08:06)
--- NOTE | 2018-12-31 08:34 | DI.CT_ITS ---
SYMPTOM/DIAGNOSIS: OVERDOSE, ALTERED, ABDOMINAL PAIN CT ABDOMEN AND PELVIS: CT scan of the abdomen and pelvis was performed following the uneventful administration of intravenous contrast material. Comparison examination is 03/24/17 Dependent atelectatic changes are seen in the lung bases. The liver is normal in size. No suspicious hepatic mass seen. Focal fatty infiltration is seen at the ligament of teres. There is a 1.7 cm stone in the gallbladder. The gallbladder measures up to 4 cm in diameter. No gallbladder wall thickening or pericholecystic fluid is seen. No biliary ductal dilatation is present. The pancreas is unremarkable as are the spleen and adrenal glands. The kidneys show normal in symmetric enhancement. No evidence of a solid renal mass or obstruction is present. The urinary bladder is intact. The reproductive organs are unremarkable as visualized. The abdominal aorta is of normal caliber. No significant abdominal or pelvic adenopathy, ascites or pneumoperitoneum is present. Note is made of a small umbilical hernia. The bowel shows no evidence of obstruction or inflammation or infection. There is a moderate amount of stool present throughout the colon which may reflect constipation. There is a normal appendix present. No acute osseous abnormality is identified. There is a trace amount of free fluid in the pelvis which may be physiologic. It is nonspecific. IMPRESSION: Cholelithiasis. No CT findings to suggest cholecystitis. If there is continued concern ultrasound may be considered. Moderate amount of retained stool which may represent constipation Trace amount of free fluid in the pelvis.
--- NOTE | 2018-12-31 08:49 | DI.VRAD_ITS ---
EXAM: CT Abdomen and Pelvis With Contrast EXAM DATE/TIME: 12/31/2018 7:00 AM CLINICAL HISTORY: 43 years old, female; Abdominal pain; Generalized; Patient HX: Altered/od. Abd pain TECHNIQUE: Imaging protocol: Axial computed tomography images of the abdomen and pelvis with intravenous contrast. Coronal and sagittal reformatted images were created and reviewed. Radiation optimization: All CT scans at this facility use at least one of these dose optimization techniques: automated exposure control; mA and/or kV adjustment per patient size (includes targeted exams where dose is matched to clinical indication); or iterative reconstruction. COMPARISON: CT ABD PELVIS WITH CONTRAST 03/24/2017 4:54 PM FINDINGS: Liver: Normal. No mass. Gallbladder and bile ducts: Cholelithiasis is noted. The gallbladder is moderately distended but not thick walled. Sonography recommended for further evaluation if right upper quadrant symptoms are present. Pancreas: Normal. No ductal dilation. Spleen: Normal. No splenomegaly. Adrenals: Normal. No mass. Kidneys and ureters: Normal. No hydronephrosis. Stomach and bowel: A moderate amount of fecal material is present within the colon.The findings may reflect an element of underlying constipation and clinical correlation is recommended. Appendix: No evidence of appendicitis. Intraperitoneal space: Trace free fluid is present which is nonspecific but may reflect physiologic fluid or rupture of an ovarian cyst or follicle. Vasculature: Normal. No abdominal aortic aneurysm. Lymph nodes: Normal. No enlarged lymph nodes. Bladder: Unremarkable as visualized. Reproductive: Unremarkable as visualized. Bones/joints: No acute fracture. No dislocation. Soft tissues: Unremarkable. IMPRESSION: 1. Cholelithiasis is noted. The gallbladder is moderately distended but not thick walled. Sonography recommended for further evaluation if right upper quadrant symptoms are present. 2. Moderate amount of colonic fecal material. 3. Trace free pelvic fluid. Dictated and Authenticated by: Quan Cunha MD. Ordering:BERTHA Couch MD
[2018-12-31] MEDS: Calcium Gluconate 4.65 MEQ/10 ML VIAL 4.65 MG IVP (08:55)
[2018-12-31] MEDS: Normal Saline 100 ML 50 ML (08:55)
--- NOTE | 2018-12-31 11:41 | NUR.NOTE ---
Nursing Note: [facility] staff at bedside. pt is calm and cooperative
--- NOTE | 2018-12-31 11:51 | PDOC.MHCN ---
Date of service: 12/31/18 Time of Service: 23:00 Mental Health Crisis Note Presenting Issue How did you arrive at the ED and why did you come: Patient arrived at the ED by ambulance due to an over dose on gabapentin. Patient stated that she was not planning to over dose just wanted to sleep. Precipitating Factors Patient denies HI/SI, patients stated that she has someone that she usually talks to when things get difficult and he was gone camping and she wasn't able to reach him. Patient stated that she wants to go home, patient stated that she feels safe in the home and knows that her significant other will take good care of her. Patient agreed to complete intake paperwork and contact the agency Tuesday to follow up. Patient also stated that she has not had a PCP for a little while so she has not had some of her prescribed medication but has an appointment tomorrow to get refills. Disposition BEHAVIOR: Calm EYE CONTACT: good MOOD: cooperative AFFECT: broad APPETITE: not much of an appetite lately SLEEP(trouble falling/staying asleep: doesn't sleep well as she is out of her night time medication that helps her fall as sleep. Plan Patient will go home with significant other and rest, Patient stated that she will contact [facility] on Tuesday for follow up. Patient also stated that she is aware of our emergency line and can contact it anytime for support. Patient completed intake paperwork and intends to engage in case management, therapy.
== END 2018-12-31 11:54 | disposition home or self-care (01) ==
PROVIDERS: Student in an Organized Health Care Education/Training Program; Emergency Provider Student in an Organized Health Care Education/Training Program; PCP Nurse Practitioner
DX: T42.71XA Poisoning by unspecified antiepileptic and sedative-hypnotic drugs, accidental (unintentional), initial encounter (principal); R41.82 Altered mental status, unspecified; R25.8 Other abnormal involuntary movements; E83.51 Hypocalcemia; F32.9 Major depressive disorder, single episode, unspecified; K80.20 Calculus of gallbladder without cholecystitis without obstruction; R10.30 Lower abdominal pain, unspecified
CPT/HCPCS: 36415; 80053; 80307; 81025; 93005; 96361; 96374; 99285; 70450; 74177; 80320; 80329; 81003; 81015; 84443; 85025; 93010; J0610; J3490

== ENCOUNTER 2019-01-10 10:20 | Emergency (ER) | payer MEDICARE, SELFPAY ==
[2019-01-10] VITALS (17 sets, daily range): BP systolic 92–115; BP diastolic 58–76; PULSE 83–89; RESP 16; TEMP 37; O2SAT 96–100
--- NOTE | 2019-01-10 10:47 | ED.GENADUL_ITS ---
Discharge Plan Disposition Patient Disposition: HOME Condition: Stable Discharge Details Chief Complaint: Dizzy/Sync Clinical Impression: Light-headed Primary Care Provider: Nemo Carl ED Provider: Wero Santoro Home Meds and New Rx's Prescriptions: No Action polyethylene glycol 3350 [Miralax] 17 gram powder in packet 17 gm PO DAILY Qty: 30 RF: 1 norgestimate-ethinyl estradiol [Sprintec (28)] 1 EACH tablet 1 tab-cap PO DAILY Qty: 3 RF: 4 Prilosec OTC 20 mg Tablet,Delayed Release (Dr/Ec) 20 mg PO DAILY RF: 0 bupropion HCl 150 MG tablet extended release 12 hr 450 mg PO DAILY Qty: 30 RF: 0 propranolol 10 MG tablet 20 mg PO BID Qty: 30 RF: 0 mirtazapine 30 MG tablet 30 mg PO DAILY Qty: 30 RF: 0 promethazine 25 MG tablet 25 mg PO Q6H PRN (Reason: nausea and vomiting) Qty: 10 RF: 0 prazosin 2 MG capsule 2 mg PO DAILY Qty: 30 RF: 0 gabapentin 600 MG tablet 600 mg PO TID RF: 0 sucralfate 1 GM tablet 1 gm PO BID RF: 0 sumatriptan succinate [Imitrex] 25 MG tablet 50 mg PO DIRECTED PRNRF: 0 ondansetron HCl 4 MG tablet 4 mg PO TID PRNRF: 0 clonazepam 0.5 MG tablet 0.5 mg PO BID PRNRF: 0 fluticasone propionate [Flonase Allergy Relief] 9.9 ML spray,suspension 9.9 ml NS DAILY RF: 0 Discharge Instructions Instructions: Lightheadedness (ED) Additional Instructions: your lab work did not show any concerning findings follow up with your primary care provider within 1-2 weeks if you have severe chest or abdominal pain, difficulty breathing or feel more ill return to the emergency department Medical Decision Making 43 yo female comes in after she was at the [facility] for a case for her significant other standing when she started to feel lightheaded and fell to the ground and rolled her left foot. Denies hitting head or loc. She denies chest pain, sob, abd pain. Had an episode of vomit this AM but states she was anxious about the case and is common for her to get vomit with anxiety. She denies si/hi or ingesting any drugs to harm herself, was here last week for gabapentin od. She has mild pain at base of left toe with no deformities, full rom and intact sensation, will xray to eval for fx. I suspect vasovagal vs orthostasis, will check for anemia and also electrolyte disorders and monitor pt ambulating without symptoms and stable vitals, labs unremarkable and xray also unremarkable on my read. Feel this was likely vasovagal and is safe for d/c, did advise f/u withp cp and return precautions given Differential Diagnosis vasovagal, stress respnse, dehydration Medical Records Medical records reviewed: Yes I reviewed the patient's medical records. Imaging Data Radiologic Study: Attestation: I personally reviewed and interpreted this imaging study as follows: Imaging: X-Ray My impression: no acute findings Lab Data Lab results reviewed: Yes I reviewed the patient's lab results. ECG Data Attestation: I personally reviewed and interpreted this ECG (s) as follows: Prior ECG tracings: not available for review Interpretation: sinus rhythm, rate of 86, pr 130, no acute st t wave ischemic findings HPI General Mode of arrival: EMS . Date/Time Provider Initiated Documentation: 01/10/19 10:42 . Limitations to Documentation: no limitations . Information obtained by: patient . History of Present Illness 43 year old F presents to the emergency department with the chief complaint of lightheaded , described as moderate, Patient started experiencing this hour(s) (1) and it has been now resolved. No relieving factors improve symptom(s), No exacerbating factors reported . Related Data Home Medications Medication Instructions Recorded Confirmed clonazepam 0.5 mg PO BID PRN 03/14/17 12/31/18 fluticasone propionate [Flonase 9.9 ml NS DAILY 03/14/17 12/31/18 Allergy Relief] gabapentin 600 mg PO TID 03/14/17 12/31/18 ondansetron HCl 4 mg PO TID PRN 03/14/17 12/31/18 sucralfate 1 gm PO BID 03/14/17 12/31/18 sumatriptan succinate [Imitrex] 50 mg PO DIRECTED PRN 03/14/17 12/31/18 norgestimate-ethinyl estradiol 1 tab-cap PO DAILY #3 pack 01/30/18 12/31/18 [Sprintec (28)] polyethylene glycol 3350 17 gram 17 gm PO DAILY #30 each 03/16/18 12/31/18 oral powder packet Prilosec OTC 20 mg PO DAILY 12/27/18 12/31/18 bupropion HCl 450 mg PO DAILY #30 tab 12/27/18 12/31/18 mirtazapine 30 mg PO DAILY #30 tab 12/27/18 12/31/18 prazosin 2 mg PO DAILY #30 cap 12/27/18 12/31/18 promethazine 25 mg PO Q6H PRN #10 tab 12/27/18 12/31/18 propranolol 20 mg PO BID #30 tab 12/27/18 12/31/18 Previous Rx's Medication Instructions Recorded norgestimate-ethinyl estradiol 1 tab-cap PO DAILY #3 pack 01/30/18 [Sprintec (28)] polyethylene glycol 3350 17 gram 17 gm PO DAILY #30 each 03/16/18 oral powder packet bupropion HCl 450 mg PO DAILY #30 tab 12/27/18 mirtazapine 30 mg PO DAILY #30 tab 12/27/18 prazosin 2 mg PO DAILY #30 cap 12/27/18 promethazine 25 mg PO Q6H PRN #10 tab 12/27/18 propranolol 20 mg PO BID #30 tab 12/27/18 Allergies Allergy/AdvReac Type Severity Reaction Status Date / Time Penicillins AdvReac Intermediate difficulty Unverified 12/31/18 06:18 breathing bees Allergy Uncoded 12/31/18 06:18 pain med AdvReac Unknown Uncoded 12/31/18 06:18 General Stated Complaint: Dizzy/Sync JAYLON: 3 Review of Systems Review of Systems All systems reviewed & are unremarkable except as noted in HPI and below Constitutional Denies chills, Denies fever(s) and Denies weakness Cardiovascular Denies chest pain and Denies dyspnea Respiratory Denies cough and Denies dyspnea Gastrointestinal Denies abdominal pain, Denies nausea and Denies vomiting Integumentary/Breasts Denies rash Neurologic Denies weakness Endocrine Denies heat intolerance PFSH Social History Smoking/Tobacco Use Status: Never Alcohol Intake: never Drug use: Never current occupation: UnEmployed Do you feel safe at home: Yes Do you feel safe in your relationship?: Yes Exam Const General: no acute distress Orientation: alert HENMT Head: normal to inspection Ears: external ears normal General nose exam: external nose normal Mouth: moist mucous membranes Eyes General: appearance normal, both eyes and all related structures Neck Neck: normal visual inspection Resp Effort & Inspection: normal respiratory effort and able to speak in complete sentences Cardio Rate: regular rate Skin General skin exam: no rashes or lesions noted Neuro General: alert and oriented x3 Extrem General: normal to inspection Psych Mental Status: mental status grossly normal Course Vital Signs Temperature 37 C 01/10/19 10:36 Pulse 87 01/10/19 10:36 Respiratory Rate 16 01/10/19 10:36 Blood Pressure 92/66 L 01/10/19 10:36 Pulse Oximetry 96 01/10/19 10:36 Temperature 37 C 01/10/19 10:36 Temperature Source Skin 01/10/19 10:36 Pulse 87 01/10/19 10:36 Respiratory Rate 16 01/10/19 10:36 Respiratory Effort Short of Breath 01/10/19 10:36 Blood Pressure 92/66 L 01/10/19 10:36 Blood Pressure Position Supine 01/10/19 10:36 Pulse Oximetry 96 01/10/19 10:36 Oxygen Delivery Method Room Air 01/10/19 10:36 Oxygen Flow Rate 0 01/10/19 10:36 Pain Level 5 01/10/19 10:36
[2019-01-10 11:06] LABS: Abs Immature Grans 0.02 k/cumm (0.0-0.09); Absolute Basophil Count 0.02 k/cumm (0.0-0.2); Absolute Eosinophil Count 0.07 k/cumm (0.0-0.7); Absolute Lymphocyte Count 2.52 k/cumm (1.2-3.4); Absolute Monocyte Count 0.35 k/cumm (0.11-0.7); Absolute Neutrophil Count 6.33 k/cumm (1.2-6.7); Basophils % 0.2; Eosinophils % 0.8; HCT 35.9 % (36.0-46.0); HGB 11.5 g/dL (12.0-15.5); Immature Grans % 0.2; Lymphocytes % 27.1; Mean Corpuscular Hemoglobin 27.6 pg (27.0-33.0); Mean Corpuscular Volume 86.1 fL (80-95); Mean Platelet Volume 9.3 fL (8.0-11.0); Monocytes % 3.8; Neutrophils % 67.9; Platelet Count 354 x1000/uL (130-400); RBC 4.17 m/cumm (4.00-5.20); RBC Distribution Width 15.9 % (11.7-14.6); White Blood Cell Count 9.31 k/cumm (4.4-10.8)
[2019-01-10] MEDS: Acetaminophen 500 MG TAB 1000 MG PO (11:14)
[2019-01-10] MEDS: Normal Saline 1,000 ML 1000 ML IV (11:14)
[2019-01-10 11:18] LABS: PTT Activated 19.2 sec (21.0-31.4); Prothrombin Time 9.5 sec (9.3-11.0)
[2019-01-10 11:24] LABS: ALT 27 U/L (12-78); AST 21 U/L (15-37); Albumin 3.7 g/dL (3.4-5.0); Alkaline Phosphatase 62 U/L (46-116); Anion Gap 9.3 mmol/L (3-11); BUN 16 mg/dL (7-18); Bilirubin, Total 0.2 mg/dL (0.2-1.0); CO2 24.7 mmol/L (21.0-32.0); CREATININE 1.13 mg/dL (0.55-1.02); Calcium 8.8 mg/dL (8.5-10.1); Chloride 104 mmol/L (98-107); Estimated GFR 52.07 (mL/min/1.73m2); Glucose 151 mg/dL (70-100); Potassium 4.2 mmol/L (3.5-5.1); Sodium 138 mmol/L (136-145); Total Protein 7.5 g/dL (6.4-8.2)
[2019-01-10 11:29] LABS: Troponin I < 0.05 ng/mL (0.00-0.06)
[2019-01-10 12:09] LABS: Bilirubin Negative (Negative); Blood Negative (Negative); Clarity Clear (Clear); Glucose Negative (Negative); Ketones Negative (Negative); Leukocyte Esterase Negative (Negative); Nitrite Negative (Negative); Urobilinogen 0.2 EU/dL (Up TO 0.2); pH 6.5 (5-8)
--- NOTE | 2019-01-10 12:49 | DI.RAD_ITS ---
SYMPTOMS/DIAGNOSIS: LEFT FOOT PAIN LEFT FOOT: The bony structures are normally mineralized. There is no evidence of a fracture or dislocation. A tiny calcaneal spur is noted and spurring is identified at the insertion of the Achilles aponeurosis on the calcaneus.
== END 2019-01-10 13:18 | disposition home or self-care (01) ==
PROVIDERS: Emergency Provider Emergency Medicine; PCP Nurse Practitioner
DX: R42 Dizziness and giddiness (principal); M79.675 Pain in left toe(s)
CPT/HCPCS: 36415; 80053; 81025; 93005; 96360; 99285; 73630; 81003; 83735; 84484; 85025; 85610; 85730; 93010; 99284; J3490

== ENCOUNTER 2019-04-10 16:39 | Emergency (ER) | payer MEDICARE, SELFPAY ==
[2019-04-10 16:44] VITALS: BP 140/92; PULSE 125; RESP 20; TEMP 36.3; O2SAT 99
[2019-04-10 17:11] LABS: Bilirubin Negative (Negative); Blood Negative (Negative); Clarity Clear (Clear); Glucose Negative (Negative); Ketones Trace mg/dL (Negative); Leukocyte Esterase Negative (Negative); Nitrite Negative (Negative); Urobilinogen 0.2 EU/dL (Up TO 0.2)
[2019-04-10 17:25] LABS: *AMPHETAMINES SCREEN URINE Negative (Negative); *BARBITURATES SCREEN URINE Negative (Negative); *BENZODIAZEPINES SCREEN URINE Negative (Negative); Cannabinoids THC Negative (Negative); Cocaine Screen,Urine Negative (Negative); METHADONE URINE SCREEN Negative (Negative); OPIATES URINE SCREEN Negative (Negative)
[2019-04-10 17:29] LABS: Tricyclic Antidepressants POSITIVE (Negative)
[2019-04-10 17:29] LABS: Abs Immature Grans 0.01 k/cumm (0.0-0.09); Absolute Basophil Count 0.02 k/cumm (0.0-0.2); Absolute Eosinophil Count 0.04 k/cumm (0.0-0.7); Absolute Lymphocyte Count 2.86 k/cumm (1.2-3.4); Absolute Neutrophil Count 3.61 k/cumm (1.2-6.7); Basophils % 0.3; Eosinophils % 0.6; HCT 37.9 % (36.0-46.0); HGB 12.1 g/dL (12.0-15.5); Immature Grans % 0.1; Lymphocytes % 41.2; Mean Corp. HGB Concentration 31.9 g/dL (32.0-36.0); Mean Corpuscular Hemoglobin 27.3 pg (27.0-33.0); Mean Corpuscular Volume 85.6 fL (80-95); Mean Platelet Volume 9.8 fL (8.0-11.0); Monocytes % 5.8; Platelet Count 276 x1000/uL (130-400); RBC 4.43 m/cumm (4.00-5.20); RBC Distribution Width 14.3 % (11.7-14.6); White Blood Cell Count 6.94 k/cumm (4.4-10.8)
[2019-04-10 17:48] LABS: Salicylate < 2.8 mg/dL (2.8-20.0)
[2019-04-10 17:51] LABS: ALT 17 U/L (14-59); AST 10 U/L (15-37); Albumin 3.8 g/dL (3.4-5.0); Alkaline Phosphatase 66 U/L (46-116); Anion Gap 12.6 mmol/L (3-11); BUN 10 mg/dL (7-18); Bilirubin, Total 0.2 mg/dL (0.2-1.0); CO2 19.4 mmol/L (21.0-32.0); CREATININE 0.93 mg/dL (0.55-1.02); Calcium 8.7 mg/dL (8.5-10.1); Chloride 107 mmol/L (98-107); Glucose 91 mg/dL (70-100); Potassium 3.8 mmol/L (3.5-5.1); Sodium 139 mmol/L (136-145); TSH 0.66 uIU/mL (0.36-3.74); Total Protein 7.6 g/dL (6.4-8.2)
[2019-04-10 18:04] LABS: ETHANOL BLOOD < 3.0 mg/dL (<3)
[2019-04-10 18:05] LABS: Acetaminophen < 2 ug/mL (10-30)
[2019-04-10] MEDS: clonazePAM 0.5 MG TAB PO (18:06)
--- NOTE | 2019-04-10 19:25 | PDOC.MHCN ---
<Ernesto Yepez Filed: 04/10/19 19:37> Date of service: 04/10/19 Time of Service: 17:45 Mental Health Crisis Note <Ernesto Yepez Filed: 04/10/19 19:37> Presenting Issue How did you arrive at the ED and why did you come: Patient arrived at the ED feeling very anxious and upset. Thoughts of SI. Precipitating Factors Patient stated her boyfriend has been cheating on her, she is very upset about this and informed him she was going to the ED. Patient stated that she recently has been taken off some of her medication including sleeping meds and feels that may have something to do with tonights anxiety. Patient stated that she could go to [place] and spend time with her mother and son. Patient shared that she is not currently enrolled in therapy due to boyfriend not trusting her. This worker discussed the possibility of patient spending the rest of the week with her mom to clear her head and get some time away. Patient agree that would be helpful and will call mom tomorrow. Patient stated that although she has thoughts of SI, its in the back of her mind and she does not plan to act on anything which is why she came to the hospital instead. Patient stated she felt safe going home and calling her mom to make plans for the remainder of the week. Disposition BEHAVIOR: depressed, tearful EYE CONTACT: good MOOD: calm AFFECT: flat APPETITE: okay less then normal SLEEP(trouble falling/staying asleep: not sleeping since medication change Plan Patient will go home tonight and contact her mom about spending the remainder of the week with her in [place] and visiting her son for Halloween while she is there. Patient has a appointment with her PCP on April 23 to discuss how the medication change is going. Signature Clinician's Name/Title: Ernesto Ott Emergency clinician
--- NOTE | 2019-04-10 19:37 | W.ED.GENAD ---
Discharge Plan Disposition Patient Disposition: HOME Condition: Improving Discharge Details Chief Complaint: PsychEval Clinical Impression: Anxiety, Depression, Borderline personality disorder Primary Care Provider: Nemo Carl ED Provider: Prince Hsu Home Meds and New Rx's Prescriptions: Continued fluticasone propionate 50 mcg/actuation Blister With Device 2 inh INHALATION DAILY RF: 0 ibuprofen 800 mg Tablet 800 mg PO TID PRNRF: 0 sumatriptan succinate 25 mg Tablet 25 mg PO ONCE RF: 0 gabapentin 300 mg Capsule 300 mg PO TID RF: 0 omeprazole 20 mg Capsule,Delayed Release(Dr/Ec) 20 mg PO BID RF: 0 epinephrine [EpiPen 2-Mega] 0.3 mg/0.3 mL Auto-Injector 0.3 mg IM ONCE RF: 0 albuterol sulfate [Ventolin HFA] 90 mcg/actuation Hfa Aerosol Inhaler 1 puff INHALATION QID PRNRF: 0 topiramate [Topamax] 50 mg Tablet 50 mg PO BID RF: 0 Alinia 500 mg Tablet 500 mg PO BID RF: 0 venlafaxine 75 mg Tablet Extended Release 24hr 75 mg PO DAILY RF: 0 clonazepam 0.5 MG tablet 0.5 mg PO BID PRNRF: 0 Discharge Instructions Instructions: Depression (ED) Additional Instructions: Continue to take your medications and follow through with safety plan, visit your mother and son, and continue to avoid if possible stressful situations. Feel free to return the emergency department for any new or significant worsening of symptoms otherwise follow-up with your primary care provider for any medication adjustments as needed. Also feel free to contact [facility] as needed for any future psychiatric services Referrals: [facility] [Provider Group] Nemo Carl [Primary Care Provider] - Discharge Data Discharge Date/Time-TO BE ENTERED AT DEPARTURE: 04/10/19 19:50 Medical Decision Making Patient presenting to emergency department for chief complaint of worsening anxiety and depression. Patient states significant social stressors including significant other found cheating on her. Patient also has the anniversary of her friends child's , and her father's birthday coming up which is also increased her anxiety and depression. Patient denies any medical complaints and physical exam is unremarkable. Patient states continual suicidal ideations and states that these thoughts are under control as she chronically has suicidal thoughts. Patient does report undergoing medication change by primary care provider couple weeks ago due to her being on too many medications . I feel the patient is stable at this time but given that she has had medication change and is presenting for some worsening of her symptoms I do feel that labs are warranted for consideration of voluntary admission. Safety plan was initiated. Labs are reviewed and are nondiagnostic and noncontributory. Patient is also not intoxicated. Mental health talent engineer was able to come and speak with patient in more detail. After further discussion with patient and surrounding social situation patient states that she would prefer to go home and have safety plan of going and staying with her mother in [facility] and removing herself from the social stressors regarding her significant other. Patient states that she is comfortable with this plan. Informed patient that she may return to the emergency department for any new or significant worsening of symptoms or if she feels that she is unsafe at any point otherwise I do not feel that there is significant risk for patient to be made involuntary at this time and feel that the social situation is the biggest contributing factor to her condition. Return precautions were discussed. After discussion of diagnosis and plan of care patient has no further needs, questions, or concerns and states clear understanding to return to the emergency department for any worsening symptoms. HPI General Mode of arrival: ambulatory. Date/Time Provider Initiated Documentation: 04/10/19 16:46. Limitations to Documentation: no limitations. Information obtained by: patient and RN notes reviewed. History of Present Illness 43 year old F presents to the emergency department with the chief complaint of Worsening depression and anxiety, described as similar to prior episodes, Quality is described as other (Denies pain or discomfort), Patient started experiencing this day(s) (2) and it has been constant. Other factors that worsen symptoms (Social stressors) . Patient notes no other symptoms.. Patient did receive the following treatments prior to arrival, none Related Data Home Medications Medication Instructions Recorded Confirmed clonazepam 0.5 mg PO BID PRN 03/14/17 04/10/19 Alinia 500 mg PO BID 04/10/19 04/10/19 albuterol sulfate [Ventolin HFA] 1 puff INHALATION QID PRN 04/10/19 04/10/19 epinephrine [EpiPen 2-Mega] 0.3 mg IM ONCE 04/10/19 04/10/19 fluticasone propionate 2 inh INHALATION DAILY 04/10/19 04/10/19 gabapentin 300 mg PO TID 04/10/19 04/10/19 ibuprofen 800 mg PO TID PRN 04/10/19 04/10/19 omeprazole 20 mg PO BID 04/10/19 04/10/19 sumatriptan succinate 25 mg PO ONCE 04/10/19 04/10/19 topiramate [Topamax] 50 mg PO BID 04/10/19 04/10/19 venlafaxine 75 mg PO DAILY 04/10/19 04/10/19 Allergies Allergy/AdvReac Type Severity Reaction Status Date / Time Penicillins AdvReac Intermediate difficulty Unverified 04/10/19 16:57 breathing bees Allergy Uncoded 04/10/19 16:57 pain med AdvReac Unknown Uncoded 04/10/19 16:57 General Stated Complaint: PsychEval JAYLON: 2 Review of Systems Constitutional Constitutional: Denies chills and Denies fever(s) Cardiovascular Cardiovascular: Denies chest pain and Denies dyspnea Respiratory Respiratory: Denies cough and Denies dyspnea Gastrointestinal Gastrointestinal: Denies abdominal pain Genitourinary Genitourinary: Denies dysuria Psychiatric Psychiatric: Reports as per HPI, Reports anxiety, Reports depression, Denies auditory hallucinations, Denies visual hallucinations, Denies tactile hallucinations, Denies homicidal ideation and Reports suicidal ideation [facility] Medical History ADD (attention deficit disorder) (Acute) Anxiety (Acute 12/29/17) Borderline personality disorder (Acute 12/29/17) Depression (Acute 12/29/17) Migraine without status migrainosus, not intractable (Acute 12/29/17) Pelvic pain (Acute) Pelvic pain (Acute 12/29/17) intial presentation 03/2017. CT of abd/pelvis. Small ovarian cyst, both R and L side. PTSD (post-traumatic stress disorder) (Acute 12/29/17) Surgical History section (Chronic ~2000) History of tonsillectomy (Chronic) Social History Smoking/Tobacco Use Status: Never Alcohol Intake: current Alcohol Intake frequency: holidays/special occasions only Drug use: Never current occupation: UnEmployed Do you feel safe at home: Yes Do you feel safe in your relationship?: Yes Exam Const General: cooperative Orientation: alert, awake and oriented x3 Limitations: mental status not altered [facility] Head: normocephalic and atraumatic Ears: hearing grossly normal bilaterally Mouth: moist mucous membranes Eyes General: appearance normal, both eyes and all related structures Pupils: PERRL EOM: EOM intact bilaterally Neck Thyroid: thyroid normal Resp Effort & Inspection: normal respiratory effort, able to speak in complete sentences and no respiratory distress Auscultation: clear to auscultation bilaterally Cardio Rate: regular rate and not tachycardic Rhythm: regular rhythm Heart Sounds: S1 normal, S2 normal, no click, no gallops, no murmurs and no rubs Neuro General: alert, awake, oriented x3, gait normal, moves all extremities and no focal motor deficits Cognition: normal cognition Speech: speech normal Psych Speech and Movement: speech and movement normal and speech clear Affect: sad Attitude: cooperative Thought Process: circumstantial Thought Content: normal, no homicidality and suicidality (Chronically with no change) Course Vital Signs Vital signs: Vital Signs Temperature 36.3 C L 04/10/19 16:44 Pulse 125 H 04/10/19 16:44 Respiratory Rate 20 04/10/19 16:44 Blood Pressure 140/92 H 04/10/19 16:44 Pulse Oximetry 99 04/10/19 16:44 Temperature 36.3 C L 04/10/19 16:44 Temperature Source Temporal Artery Scan 04/10/19 16:44 Pulse 125 H 04/10/19 16:44 Respiratory Rate 20 04/10/19 16:44 Respiratory Effort Non-Labored 04/10/19 16:54 Blood Pressure 140/92 H 04/10/19 16:44 Blood Pressure Position Sitting 04/10/19 16:44 Pulse Oximetry 99 04/10/19 16:44 Oxygen Delivery Method Room Air 04/10/19 16:44 Oxygen Flow Rate 0 04/10/19 16:44 Pain Level 8 04/10/19 16:44 Comment 04/10/19 16:44 Lab/Test Results Lab/Test Results: Laboratory Tests Range/Units 04/10/19 04/10/19 04/10/19 17:00 17:00 17:20 WBC (4.4-10.8) k/cumm RBC (4.00-5.20) m/cumm Hgb (12.0-15.5) g/dL Hct (36.0-46.0) % MCV (80-95) fL MCH (27.0-33.0) pg MCHC (32.0-36.0) g/dL RDW (11.7-14.6) % Plt Count (130-400) x1000/uL MPV (8.0-11.0) fL Immature Gran % Neutrophils % Lymphocytes % Monocytes % Eosinophils % Basophils % Absolute Neutrophils (1.2-6.7) k/cumm Absolute Lymphocytes (1.2-3.4) k/cumm Absolute Monocytes (0.11-0.7) k/cumm Absolute Eosinophils (0.0-0.7) k/cumm Absolute Basophils (0.0-0.2) k/cumm Sodium (136-145) mmol/L 139 Potassium (3.5-5.1) mmol/L 3.8 Chloride (98-107) mmol/L 107 Carbon Dioxide (21.0-32.0) mmol/L 19.4 L Anion Gap (3-11) mmol/L 12.6 H BUN (7-18) mg/dL 10 Creatinine (0.55-1.02) mg/dL 0.93 Estimated GFR/1.73 m2 (mL/min/1.73m2) >= 60.00 Glucose (70-100) mg/dL 91 Calcium (8.5-10.1) mg/dL 8.7 Total Bilirubin (0.2-1.0) mg/dL 0.2 AST (15-37) U/L 10 L ALT (14-59) U/L 17 Alkaline Phosphatase (46-116) U/L 66 Total Protein (6.4-8.2) g/dL 7.6 Albumin (3.4-5.0) g/dL 3.8 TSH (0.36-3.74) uIU/mL 0.66 Urine Color (Yellow) Yellow Urine Clarity (Clear) Clear Urine pH (5-8) 6.0 Ur Specific [place] (1.005-1.025) 1.020 Urine Protein (Negative) mg/dL Negative Urine Ketones (Negative) mg/dL Trace H Urine Blood (Negative) Negative Urine Nitrite (Negative) Negative Urine Bilirubin (Negative) Negative Urine Urobilinogen (Up TO 0.2) EU/dL 0.2 Ur Leukocyte Esterase (Negative) Negative Urine Glucose (Negative) mg/dL Negative Salicylates (2.8-20.0) mg/dL Urine Opiates Screen (Negative) Negative Urine Methadone Screen (Negative) Negative Acetaminophen (10-30) ug/mL Ur Barbiturates Screen (Negative) Negative Ur Tricyclics Screen (Negative) Positive A Ur Amphetamines Screen (Negative) Negative U Benzodiazepines Scrn (Negative) Negative Urine Cocaine Screen (Negative) Negative Ur THC Screen (Negative) Negative Ethyl Alcohol (<3) mg/dL < 3.0 Range/Units 04/10/19 04/10/19 17:20 17:20 WBC (4.4-10.8) k/cumm 6.94 RBC (4.00-5.20) m/cumm 4.43 Hgb (12.0-15.5) g/dL 12.1 Hct (36.0-46.0) % 37.9 MCV (80-95) fL 85.6 MCH (27.0-33.0) pg 27.3 MCHC (32.0-36.0) g/dL 31.9 L RDW (11.7-14.6) % 14.3 Plt Count (130-400) x1000/uL 276 MPV (8.0-11.0) fL 9.8 Immature Gran % 0.1 Neutrophils % 52.0 Lymphocytes % 41.2 Monocytes % 5.8 Eosinophils % 0.6 Basophils % 0.3 Absolute Neutrophils (1.2-6.7) k/cumm 3.61 Absolute Lymphocytes (1.2-3.4) k/cumm 2.86 Absolute Monocytes (0.11-0.7) k/cumm 0.40 Absolute Eosinophils (0.0-0.7) k/cumm 0.04 Absolute Basophils (0.0-0.2) k/cumm 0.02 Sodium (136-145) mmol/L Potassium (3.5-5.1) mmol/L Chloride (98-107) mmol/L Carbon Dioxide (21.0-32.0) mmol/L Anion Gap (3-11) mmol/L BUN (7-18) mg/dL Creatinine (0.55-1.02) mg/dL Estimated GFR/1.73 m2 (mL/min/1.73m2) Glucose (70-100) mg/dL Calcium (8.5-10.1) mg/dL Total Bilirubin (0.2-1.0) mg/dL AST (15-37) U/L ALT (14-59) U/L Alkaline Phosphatase (46-116) U/L Total Protein (6.4-8.2) g/dL Albumin (3.4-5.0) g/dL TSH (0.36-3.74) uIU/mL Urine Color (Yellow) Urine Clarity (Clear) Urine pH (5-8) Ur Specific [place] (1.005-1.025) Urine Protein (Negative) mg/dL Urine Ketones (Negative) mg/dL Urine Blood (Negative) Urine Nitrite (Negative) Urine Bilirubin (Negative) Urine Urobilinogen (Up TO 0.2) EU/dL Ur Leukocyte Esterase (Negative) Urine Glucose (Negative) mg/dL Salicylates (2.8-20.0) mg/dL < 2.8 L Urine Opiates Screen (Negative) Urine Methadone Screen (Negative) Acetaminophen (10-30) ug/mL < 2 L Ur Barbiturates Screen (Negative) Ur Tricyclics Screen (Negative) Ur Amphetamines Screen (Negative) U Benzodiazepines Scrn (Negative) Urine Cocaine Screen (Negative) Ur THC Screen (Negative) Ethyl Alcohol (<3) mg/dL POC- Test(urine) Negative
[2019-04-10 19:50] VITALS: BP 140/86; PULSE 89; RESP 16; O2SAT 100
== END 2019-04-10 19:50 | disposition home or self-care (01) ==
PROVIDERS: Emergency Provider Nurse Practitioner Family; PCP Nurse Practitioner
DX: F41.8 Other specified anxiety disorders (principal); F60.3 Borderline personality disorder; R45.851 Suicidal ideations; Z60.8 Other problems related to social environment
CPT/HCPCS: 36415; 80053; 80307; 81025; 99285; 80320; 80329; 81003; 84443; 85025; 99284

== ENCOUNTER 2019-04-23 14:59 | Outpatient (REF) | payer MEDICARE, SELFPAY ==
--- NOTE | 2019-04-23 14:00 | PAPFT_PTH ---
PATIENT: SEBASTIÁN JULES LOC: [facility] U#:[id number] AGE/SX: 43/F ROOM: RE04/23/[address]: Florecita Renteria : 1975 BED: DIS: 04/23/2019 SPEC #: [id number] RECD: 04/24/19 12:43 STATUS: DARVIN REQ #: [id number] ARCENIO: 04/23/19 14:[address]: Florecita Renteria DEPT: [facility] Cytology RECD BY: Herlinda Lamar ENTERED: 04/24/19 12:44 SP TYPE: PAPFT OTHR DR: Nemo Carl Tissues: 1 - CX/ENDOCX FOR PAP SMEARS Procedures: PAP THIN PREP/UVM Screening HPV DNA PROBE Comments: [id number] (CHLAMYDIA/GC)
[2019-04-24 20:17] LABS: HIV-1/2 Ag & Ab Screen Negative (Negative)
[2019-04-25 13:53] LABS: HSV Type 1 Ab, IgG Positive (Negative); HSV Type 2 Ab, IgG Negative (Negative); Syphilis Serology (RPR) Negative (Negative)
[2019-04-25 15:10] LABS: Chlamydia Result Negative (Negative)
[2019-04-27 14:08] LABS: GC Result Negative (Negative)
== END 2019-04-23 15:19 ==
LOC: NCHCN 14:59
PROVIDERS: PCP Nurse Practitioner; Visit Provider Family Medicine
DX: Z12.4 Encounter for screening for malignant neoplasm of cervix (principal); Z01.419 Encounter for gynecological examination (general) (routine) without abnormal findings; Z11.51 Encounter for screening for human papillomavirus (HPV); Z11.3 Encounter for screening for infections with a predominantly sexual mode of transmission; Z11.4 Encounter for screening for human immunodeficiency virus [HIV]
CPT/HCPCS: 87389; 87491; 87591; 88142; 86592; 86695; 86696; 87624

== ENCOUNTER 2019-06-02 09:28 | Emergency (ER) | payer MEDICARE, SELFPAY ==
[2019-06-02 09:34] VITALS: BP 143/73; PULSE 116; RESP 18; TEMP 35.9; O2SAT 97
--- NOTE | 2019-06-02 09:37 | W.ED.GENAD ---
Discharge Plan Disposition Patient Disposition: HOME Condition: Good Discharge Details Chief Complaint: Nausea/Vomit/Diar Clinical Impression: Anxiety, Nausea & vomiting Primary Care Provider: Nemo Carl ED Provider: Nalini Dotson Home Meds and New Rx's Prescriptions: New ondansetron 4 mg tablet,disintegrating 4 mg PO Q6H PRN (Reason: nausea and vomiting) Qty: 14 RF: 0 Continued fluticasone propionate 50 mcg/actuation Blister With Device 2 inh INHALATION DAILY RF: 0 ibuprofen 800 mg Tablet 800 mg PO TID PRNRF: 0 sumatriptan succinate 25 mg Tablet 25 mg PO ONCE RF: 0 gabapentin 300 mg Capsule 300 mg PO TID RF: 0 omeprazole 20 mg Capsule,Delayed Release(Dr/Ec) 20 mg PO BID RF: 0 epinephrine [EpiPen 2-Mega] 0.3 mg/0.3 mL Auto-Injector 0.3 mg IM ONCE RF: 0 albuterol sulfate [Ventolin HFA] 90 mcg/actuation Hfa Aerosol Inhaler 1 puff INHALATION QID PRNRF: 0 topiramate [Topamax] 50 mg Tablet 50 mg PO BID RF: 0 Alinia 500 mg Tablet 500 mg PO BID RF: 0 venlafaxine 75 mg Tablet Extended Release 24hr 75 mg PO DAILY RF: 0 clonazepam 0.5 MG tablet 0.5 mg PO BID PRNRF: 0 ondansetron HCl [Zofran] 4 mg Tablet 4 mg PO PRN PRNRF: 0 levonorgestrel-ethinyl estrad [Jolessa] 0.15 mg-30 mcg (91) Tablets,Dose Pack,3 Month 1 tab PO DAILY RF: 0 Discharge Instructions Instructions: Acute Nausea and Vomiting (ED) Additional Instructions: Continue to encourage hydration. You may advance diet as tolerated but start with easy to digest foods such as bananas, rice, applesauce, toast. Please follow-up with primary care next week for reevaluation. If you develop fever/chills, abdominal pain, inability stay hydrated or other new/worsening symptoms please seek care urgently once again. Referrals: Nemo Carl [Primary Care Provider] - Medical Decision Making Patient is a 43-year-old female presenting today with chief complaint nausea and vomiting. She reports that she started having nausea and vomiting yesterday. Feels that this is stress reaction. She reports was had this multiple times always feels the same. Reports 10 episodes of emesis over the past 24 hours. Reports that she has had 4 loose bowel movements. No change in urinary habits. Denies any vaginal symptoms. Is endorsing some mild periumbilical discomfort. This is not made worse with eating. Since that this correlates with the nausea. Denies any fevers or chills. No recent travel. States has had a large amount of stress recently with a in the family. Past surgical history pertinent for section. On exam, patient appears nontoxic. She is notably tachycardic at 116. Afebrile. Abdomen is benign. No chest pain or shortness of breath. Normal cardiovascular exam. Plan to hydrate the patient Antiemetics and obtain baseline labs. Patient was seen here in December and at that time received IV Phenergan. She reports that worked very well for her. Labs reviewed. Patient is anemic but this is baseline for the patient. Potassium slightly low 3.4. Patient does have anion gap of 14.2. She is and will p.o. challenge the patient. She does have 40 ketones in her urine. She is feeling much improved after IV Phenergan and will PO challenge. Patient was able to tolerate dania erasmo. Feels much improved and is requesting discharge. Patient reports that she last had Zofran at home for her nausea and vomiting, is requesting a refill. Encourage gentle hydration. She is given return precautions. Advise that she follow-up with primary care next week for reevaluation. All of her questions and concerns were addressed and she is in agreement this plan. HPI General Mode of arrival: ambulatory. Date/Time Provider Initiated Documentation: 06/02/19 09:37. Limitations to Documentation: no limitations. Information obtained by: patient and RN notes reviewed. HPI Narrative: Patient is a 43-year-old female with history of PTSD, depression, borderline personality, anxiety, presenting today with chief complaint nausea, vomiting and diarrhea. She reports that symptoms began yesterday. She reports that she has this quite frequently and describes it as a stress response. Reports that many people in her family have an issue like this. She states that she is vomited x10 over the past 24 hours and has had 4 episodes of loose stool. Denies any hematemesis, melena or hematochezia. Denies any fevers or chills. Reports a diminished appetite. States that she had a family member recently and has been supporting a young child through this which has been causing her large amount of stress. Denies recent travel. No recent change in medications. States she is been able to take her medications as prescribed. Related Data Home Medications Medication Instructions Recorded Confirmed clonazepam 0.5 mg PO BID PRN 03/14/17 06/02/19 Alinia 500 mg PO BID 04/10/19 06/02/19 albuterol sulfate [Ventolin HFA] 1 puff INHALATION QID PRN 04/10/19 06/02/19 epinephrine [EpiPen 2-Mega] 0.3 mg IM ONCE 04/10/19 06/02/19 fluticasone propionate 2 inh INHALATION DAILY 04/10/19 06/02/19 gabapentin 300 mg PO TID 04/10/19 06/02/19 ibuprofen 800 mg PO TID PRN 04/10/19 06/02/19 omeprazole 20 mg PO BID 04/10/19 06/02/19 sumatriptan succinate 25 mg PO ONCE 04/10/19 06/02/19 topiramate [Topamax] 50 mg PO BID 04/10/19 06/02/19 venlafaxine 75 mg PO DAILY 04/10/19 06/02/19 levonorgestrel-ethinyl estrad 1 tab PO DAILY 06/02/19 06/02/19 [Jolessa] ondansetron 4 mg PO Q6H PRN #14 tab 06/02/19 ondansetron HCl [Zofran] 4 mg PO PRN PRN 06/02/19 06/02/19 Previous Rx's Medication Instructions Recorded ondansetron 4 mg PO Q6H PRN #14 tab 06/02/19 Allergies Allergy/AdvReac Type Severity Reaction Status Date / Time Penicillins AdvReac Intermediate difficulty Unverified 06/02/19 09:41 breathing bees Allergy Uncoded 06/02/19 09:41 pain med AdvReac Unknown Uncoded 06/02/19 09:41 General Stated Complaint: Abd Prob JAYLON: 3 Review of Systems Constitutional Constitutional: Reports as per HPI, Denies chills, Denies fatigue, Denies fever(s) and Denies headache(s) ENT Ears, Nose, Mouth, and Throat: Denies headache(s) Cardiovascular Cardiovascular: Reports as per HPI, Denies chest pain and Denies dyspnea Respiratory Respiratory: Reports as per HPI, Denies cough and Denies dyspnea Gastrointestinal Gastrointestinal: Reports as per HPI Genitourinary Genitourinary: Reports system reviewed and no additional complaints, except as docu (Denies any change in urinary habits, denies dysuria, hematuria, urgency), Denies vaginal discharge, Denies vaginal odor and Denies vaginal pruritus Musculoskeletal Musculoskeletal: Reports as per HPI and Denies back pain Integumentary/Breasts Skin/Breast: Reports as per HPI and Denies rash Neurologic Neurologic: Reports as per HPI and Denies headache(s) Endocrine Endocrine: Denies fatigue [facility] Medical History ADD (attention deficit disorder) (Acute) Anxiety (Acute 12/29/17) Borderline personality disorder (Acute 12/29/17) Depression (Acute 12/29/17) Migraine without status migrainosus, not intractable (Acute 12/29/17) Pelvic pain (Acute) Pelvic pain (Acute 12/29/17) intial presentation 03/2017. CT of abd/pelvis. Small ovarian cyst, both R and L side. PTSD (post-traumatic stress disorder) (Acute 12/29/17) Surgical History section (Chronic ~2000) History of tonsillectomy (Chronic) Social History Smoking/Tobacco Use Status: Never Alcohol Intake: current Alcohol Intake frequency: holidays/special occasions only Drug use: Never Substance use type: does not use current occupation: UnEmployed Do you feel safe at home: Yes Do you feel safe in your relationship?: Yes Additional Social history: homeless, anxious about her relationship. Exam Const General: cooperative, healthy appearing, comfortable, no acute distress and well developed Nutritional Appearance: average body habitus and well nourished Orientation: alert and awake HENMT Head: normal to inspection Mouth: moist mucous membranes Resp Effort & Inspection: normal respiratory effort, able to speak in complete sentences and no respiratory distress Auscultation: clear to auscultation bilaterally, no rales, no rhonchi and no wheezes Cardio Rate: regular rate Rhythm: regular rhythm Heart Sounds: S1 normal and S2 normal GI Inspection: normal to inspection, no abdominal wall ecchymosis, no edema and non-distended Palpation: soft, no hepatosplenomegaly, not firm, no guarding, no hernias, not rigid and nontender Percussion: normal to percussion Auscultation: normal bowel sounds Back/Spine/Pelvis Back: no CVA tenderness Skin General skin exam: no rashes or lesions noted Trauma: no lacerations or abrasions Neuro General: alert and awake Cognition: normal cognition Speech: speech normal Gait: normal gait Psych Appearance: grossly normal and well kempt Mental Status: mental status grossly normal Speech and Movement: speech and movement normal Course Vital Signs Vital signs: Vital Signs Temperature 35.9 C L 06/02/19 09:34 Pulse 116 H 06/02/19 09:34 Respiratory Rate 18 06/02/19 09:34 Blood Pressure 143/73 H 06/02/19 09:34 Pulse Oximetry 97 06/02/19 09:34 Temperature 35.9 C L 06/02/19 09:34 Temperature Source Skin 06/02/19 09:34 Pulse 116 H 06/02/19 09:34 Respiratory Rate 18 06/02/19 09:34 Blood Pressure 143/73 H 06/02/19 09:34 Pulse Oximetry 97 06/02/19 09:34 Oxygen Delivery Method Room Air 06/02/19 09:34 Oxygen Flow Rate 0 06/02/19 09:34 Pain Level 5 06/02/19 09:34
[2019-06-02] MEDS: Normal Saline 1,000 ML 1000 ML IV ×2 (09:57→10:43)
[2019-06-02 10:06] LABS: Abs Immature Grans 0.01 k/cumm (0.0-0.09); Absolute Basophil Count 0.01 k/cumm (0.0-0.2); Absolute Lymphocyte Count 1.46 k/cumm (1.2-3.4); Absolute Monocyte Count 0.36 k/cumm (0.11-0.7); Basophils % 0.1; HCT 33.2 % (36.0-46.0); HGB 10.5 g/dL (12.0-15.5); Immature Grans % 0.1; Lymphocytes % 18.2; Mean Corp. HGB Concentration 31.6 g/dL (32.0-36.0); Mean Corpuscular Hemoglobin 26.4 pg (27.0-33.0); Mean Corpuscular Volume 83.6 fL (80-95); Mean Platelet Volume 9.3 fL (8.0-11.0); Monocytes % 4.5; Neutrophils % 77.1; Platelet Count 329 x1000/uL (130-400); RBC 3.97 m/cumm (4.00-5.20); RBC Distribution Width 14.3 % (11.7-14.6); White Blood Cell Count 8.04 k/cumm (4.4-10.8)
[2019-06-02 10:18] LABS: ALT 15 U/L (14-59); AST 13 U/L (15-37); Albumin 3.5 g/dL (3.4-5.0); Alkaline Phosphatase 54 U/L (46-116); Anion Gap 14.2 mmol/L (3-11); BUN 9 mg/dL (7-18); Bilirubin, Total 0.4 mg/dL (0.2-1.0); CO2 18.8 mmol/L (21.0-32.0); CREATININE 0.57 mg/dL (0.55-1.02); Calcium 8.7 mg/dL (8.5-10.1); Chloride 106 mmol/L (98-107); Glucose 109 mg/dL (74-106); Lipase 81 U/L (73-393); Potassium 3.4 mmol/L (3.5-5.1); Sodium 139 mmol/L (136-145); Total Protein 7.4 g/dL (6.4-8.2)
[2019-06-02 10:22] LABS: Bilirubin Small (Negative); Blood Small (Negative); Clarity Sl Cloudy (Clear); Glucose Negative (Negative); Ketones 40 mg/dL (Negative); Leukocyte Esterase Negative (Negative); Nitrite Negative (Negative); Specific Gravity >= 1.030 (1.005-1.025); Urobilinogen 0.2 EU/dL (Up TO 0.2); pH 6.5 (5-8)
[2019-06-02 10:35] LABS: Bacteria Few HPF (Negative); C & S Indicated? No; Casts Negative LPF (Negative); Crystals Negative HPF (Negative); Epithelial Cells Many HPF (Negative); Mucus Negative (Negative)
== END 2019-06-02 11:15 | disposition home or self-care (01) ==
PROVIDERS: Emergency Provider Physician Assistant; PCP Nurse Practitioner
DX: R11.2 Nausea with vomiting, unspecified (principal); F41.9 Anxiety disorder, unspecified; R10.33 Periumbilical pain
CPT/HCPCS: 36415; 80053; 81025; 83690; 96361; 96365; 99284; 81003; 81015; 85025

== ENCOUNTER 2019-09-28 20:39 | Observation (INO) | payer MEDICARE, SELFPAY ==
[2019-09-28] VITALS (39 sets, daily range): BP systolic 110–156; BP diastolic 65–85; PULSE 84–127; RESP 12–26; TEMP 36.8; O2SAT 97–100
--- NOTE | 2019-09-28 20:29 | W.ED.GENAD ---
Discharge Plan Disposition Patient Disposition: [facility] INPATIENT Condition: Improving Discharge Details Chief Complaint: OD/Poison Clinical Impression: Suicide attempt, Intentional overdose of drug in tablet form Admit Date/Time: 09/28/19 21:07 Admit Provider: Chau Britt Attending Provider: Wero Coker Primary Care Provider: Nemo Carl ED Provider: Sudarshan Mccabe [facility] Course Hospital Course: This is a 44-year-old woman who contacted EMS because of psychologic distress. She had an argument with her ex-boyfriend the evening of admission. She said she took a handful of her migraine headache medication and about 6 of her 100 mg amitriptyline pills. She described her motivation for doing this as wanting to make it all go away. She does not specifically admit to any suicidal ideation. She was somewhat obtunded when she came in. Overnight she was monitored and showed no abnormality in her heart rate or rhythm. Her QTc interval remained stable at 433. By the time of discharge she was fully lucid and remorseful of the event. She was seen by mental health, Melisa Argueta, and cleared to return home with further phone follow-up. Her overall plan is to move back to [facility]. Discharge Instructions Instructions: Adult Overdose (ED) Discharge Data Discharge Date/Time-TO BE ENTERED AT DEPARTURE: 09/28/19 22:50 Medical Decision Making 2100 --44-year-old female with history of ADD, anxiety, borderline personality disorder, depression, PTSD, here after consuming unknown amount of clonazepam and attempt to harm herself. Patient is altered. She is hemodynamically stable and protecting her airway. Plan to check screening labs including Tylenol, salicylate, LFTs, and electrolytes. Will give IV fluid bolus. Screening ECG was reviewed and interpreted by me: Sinus tachycardia 103 bpm, normal axis, QTC 495, QRS duration 100, nondiagnostic. I have contacted care management, [facility] human services crisis screener, and will institute one-to-one clinical patient observer. --UDS reviewed, negative for benzos, positive for try cyclic antidepressant. Of note, clonazepam is short lived in urine drug screen and result may represent false negative. -- Spoke with poison control center: Recommend treat supportive. Repeat tylenol at 4 hours. Monitor for at least 6 hours. Normal QRS duration is reassuring. Repeat ECG reviewed and interpreted by me: Sinus rhythm 95 bpm, normal axis, QTC now 447 which is improved from prior and within normal range, QRS duration remains normal at 102. I think try cyclic antidepressant overdose is unlikely although I do think that she is amitriptyline as this is currently prescribed to her. 2144 -- Patient will be admitted to critical care unit by Dr. Britt. Care transitioned to Dr. Britt. HPI General Mode of arrival: EMS. Date/Time Provider Initiated Documentation: 09/28/19 20:50. Limitations to Documentation: altered mental status. Information obtained by: EMS. HPI Narrative: 44-year-old female with history of PTSD, depression, borderline personality disorder, anxiety, here with intentional overdose on clonazepam in an attempt to commit suicide. History and review of systems is limited secondary to altered mental status. Per EMS, patient filled a prescription for clonazepam today and apparently consumed the entire bottle sometime today. Family found her asleep on her living room floor and called EMS. Related Data Home Medications Medication Instructions Recorded Confirmed clonazepam 0.5 mg PO DAILY 03/14/17 09/28/19 Alinia 500 mg PO BID 04/10/19 09/28/19 albuterol sulfate [Ventolin HFA] 1 puff INHALATION QID PRN 04/10/19 09/28/19 epinephrine [EpiPen 2-Mega] 0.3 mg IM ONCE 04/10/19 09/28/19 gabapentin 300 mg PO TID 04/10/19 09/28/19 ibuprofen 800 mg PO TID PRN 04/10/19 09/28/19 omeprazole 20 mg PO BID 04/10/19 09/28/19 sumatriptan succinate 25 mg PO PRN PRN 04/10/19 09/28/19 topiramate [Topamax] 50 mg PO BID 04/10/19 09/28/19 venlafaxine 75 mg PO DAILY 04/10/19 09/28/19 levonorgestrel-ethinyl estrad 1 tab PO DAILY 06/02/19 09/28/19 [Jolessa] ondansetron HCl [Zofran] 4 mg PO QID PRN 06/02/19 09/28/19 amitriptyline 100 mg PO HS 09/28/19 09/28/19 fluticasone propionate 1 spray INTRANASAL DAILY 09/28/19 09/28/19 Allergies Allergy/AdvReac Type Severity Reaction Status Date / Time Penicillins AdvReac Intermediate difficulty Unverified 09/28/19 20:33 breathing bees Allergy Uncoded 09/28/19 20:33 pain med AdvReac Unknown Uncoded 09/28/19 20:33 General Stated Complaint: OD/Poison JAYLON: 2 Review of Systems Unobtainable due to mental status (Patient is altered) [facility] Medical History ADD (attention deficit disorder) (Acute) Anxiety (Acute 12/29/17) Borderline personality disorder (Acute 12/29/17) Depression (Acute 12/29/17) Migraine without status migrainosus, not intractable (Acute 12/29/17) Pelvic pain (Acute) Pelvic pain (Acute 12/29/17) intial presentation 03/2017. CT of abd/pelvis. Small ovarian cyst, both R and L side. PTSD (post-traumatic stress disorder) (Acute 12/29/17) Surgical History section (Chronic ~2000) History of tonsillectomy (Chronic) Social History Smoking/Tobacco Use Status: Never Alcohol Intake: current Drug use: Never Substance use type: does not use current occupation: UnEmployed Do you feel safe at home: Yes Exam Const General: no acute distress HENMT Mouth: moist mucous membranes Eyes Conjunctivae: normal conjunctivae Sclera: normal sclerae Pupils: PERRL Neck Neck: supple Resp Auscultation: clear to auscultation bilaterally, no rales, no rhonchi and no wheezes Other: Protecting airway Cardio Jugular venous pressure: no JVD Rate: regular rate and not tachycardic Rhythm: regular rhythm GI Palpation: soft, not firm, no guarding, no masses, not rigid and nontender Skin General skin exam: no rashes or lesions noted Neuro General: tone normal and other (Patient drowsy) Cognition: abnormal cognition Speech: other (Garbled) Extrem General: no edema Psych Mental Status: other (Depressed) Mood: other (Depressed) Course Vital Signs Vital signs: Vital Signs Temperature 36.8 C 09/28/19 20:23 Pulse 106 H 09/28/19 20:23 Respiratory Rate 17 09/28/19 20:23 Blood Pressure 178/115 H 09/28/19 20:23 Pulse Oximetry 100 09/28/19 20:23 Temperature 36.8 C 09/28/19 20:23 Pulse 127 H 09/28/19 20:26 Pulse 104 H 09/28/19 20:27 Respiratory Rate 21 09/28/19 20:27 Blood Pressure 178/115 H 09/28/19 20:23 Blood Pressure Mean 130 09/28/19 20:26 Blood Pressure Position Supine 09/28/19 20:23 Pulse Oximetry 100 09/28/19 20:27 Oxygen Delivery Method Room Air 09/28/19 20:23 Oxygen Flow Rate 0 09/28/19 20:23
[2019-09-28] MEDS: Normal Saline 1,000 ML 1000 ML IV (20:37)
--- NOTE | 2019-09-28 20:55 | HPE_ITS ---
Date of service: 09/28/19 Time of Service: 20:55 Assessment and Plan Assessment and plan (1) Drug overdose: Status: Acute Assessment and plan: Drug OD, by report benzo's but will await tox screen. In this regard I do note findings c/w anticholinergic effect (mydriasis, tachycardia, QTc prolongation) though I do not see TCA on med list. In any case will await labs and admit to ICU for monitoring. Once sensorium clears will consult mental health. History of Present Illness History of Present Illness Chief Complaint: drug OD Narrative: 44 female with multiple psychiatric diagnoses. History obtained from ER via EMS. Apparently had some disputeb with ex-, took some pilss (per EMS Temazepam 30- ,mg). Family found patient passed out and summoned EMS. patient unable to give any sustained history. In ER noted to be lethargic, labs drawn, admitted for further management. EKG demonstrates sinus tach with modest prolongation QTc to 495, otherwise normal intervals. Review of Systems Unobtainable due to mental condition [facility] Medical History ADD (attention deficit disorder) (Acute) Anxiety (Acute 12/29/17) Borderline personality disorder (Acute 12/29/17) Depression (Acute 12/29/17) Migraine without status migrainosus, not intractable (Acute 12/29/17) Pelvic pain (Acute) Pelvic pain (Acute 12/29/17) intial presentation 03/2017. CT of abd/pelvis. Small ovarian cyst, both R and L side. PTSD (post-traumatic stress disorder) (Acute 12/29/17) Surgical History section (Chronic ~2000) History of tonsillectomy (Chronic) Social History Smoking/Tobacco Use Status: Never Alcohol Intake: current Drug use: Never Substance use type: does not use current occupation: UnEmployed Do you feel safe at home: Yes Meds Home Medications and Allergies Home Medications Medication Instructions Recorded Confirmed Type clonazepam 0.5 mg PO BID PRN 03/14/17 06/02/19 History Alinia 500 mg PO BID 04/10/19 06/02/19 History albuterol sulfate [Ventolin HFA] 1 puff INHALATION QID PRN 04/10/19 06/02/19 History epinephrine [EpiPen 2-Mega] 0.3 mg IM ONCE 04/10/19 06/02/19 History fluticasone propionate 2 inh INHALATION DAILY 04/10/19 06/02/19 History gabapentin 300 mg PO TID 04/10/19 06/02/19 History ibuprofen 800 mg PO TID PRN 04/10/19 06/02/19 History omeprazole 20 mg PO BID 04/10/19 06/02/19 History sumatriptan succinate 25 mg PO ONCE 04/10/19 06/02/19 History topiramate [Topamax] 50 mg PO BID 04/10/19 06/02/19 History venlafaxine 75 mg PO DAILY 04/10/19 06/02/19 History levonorgestrel-ethinyl estrad 1 tab PO DAILY 06/02/19 06/02/19 History [Jolessa] ondansetron 4 mg PO Q6H PRN #14 tab 06/02/19 Rx ondansetron HCl [Zofran] 4 mg PO PRN PRN 06/02/19 06/02/19 History Allergies Allergy/AdvReac Type Severity Reaction Status Date / Time Penicillins AdvReac Intermediate difficulty Unverified 09/28/19 20:33 breathing bees Allergy Uncoded 09/28/19 20:33 pain med AdvReac Unknown Uncoded 09/28/19 20:33 Exam Narrative Exam Narrative: 1340/77, 104, 36.8, 21, 100%. HEENT atraumatic, pupils 10 mm , reactive; neck supple; heart tachy/regular; abdomen hypoactive BS, soft and NT; extremities w/o edema; neuro lethargic, answers some questions, partially coherent, drifts off, no sustained communication, moves all 4s on command Results Labs Result diagrams: 09/28/19 20:25 09/28/19 20:25 Last Vital Signs Temp 36.8 C 09/28/19 20:23 Pulse 127 H 09/28/19 20:26 Resp 21 09/28/19 20:27 BP 130/77 09/28/19 20:23 Pulse Ox 100 09/28/19 20:27 COVID-19 Screening Traveled to [place] from one of the affected countries or regions?: NO Recent travel in the [place] within the last 8 weeks?: No Recent out of the country travel within the last 8 weeks?: No Exposure or possible exposure to illness during travel?: No Had IN PERSON contact w/suspected or confirmed C-19 person: No Have you had the following symptoms in the past few days?: No
--- NOTE | 2019-09-28 20:56 | CMSP_ITS ---
- If Service Date Differs Date of service: 09/28/19 Time of Service: 20:57 Care Management Safety Plan Interim safety plan while Iris is ongoing medical clearance and waiting mental health assessment. Safety Plan 1. Iris will remain in paper clothing and on suicide precautions. 2. Iris will remain in room under direct supervision of CPS[employer] at all times 3. Sara mat have paper cups, plates, and finger foods. She may have a metal spoon accounted for after meal. 4. Staff to follow [facility] management of the behavioral health policy 5. Comfort wipes, or shower with qualified staff present at all times. 6. No personal belongings 7. Visitors at the discretion of staff. 8. Active include coloring, crayons, television if available. 9. Bathroom, supervised by qualified staff when outside the room. 10. Phone at the discretion of staff. [facility] crisis to assess the patient once she is medically clear.
[2019-09-28 20:59] LABS: Abs Immature Grans 0.01 k/cumm (0.0-0.09); Absolute Basophil Count 0.01 k/cumm (0.0-0.2); Absolute Eosinophil Count 0.05 k/cumm (0.0-0.7); Absolute Lymphocyte Count 2.56 k/cumm (1.2-3.4); Absolute Monocyte Count 0.45 k/cumm (0.11-0.7); Absolute Neutrophil Count 4.12 k/cumm (1.2-6.7); Basophils % 0.1; ETHANOL BLOOD < 3.0 mg/dL (<3); Eosinophils % 0.7; HCT 33.6 % (36.0-46.0); HGB 9.9 g/dL (12.0-15.5); Immature Grans % 0.1 %; Lymphocytes % 35.6; Mean Corp. HGB Concentration 29.5 g/dL (32.0-36.0); Mean Corpuscular Hemoglobin 23.3 pg (27.0-33.0); Mean Corpuscular Volume 79.2 fL (80-95); Mean Platelet Volume 9.1 fL (8.0-11.0); Monocytes % 6.3; Neutrophils % 57.2; Platelet Count 411 x1000/uL (130-400); RBC 4.24 m/cumm (4.00-5.20); RBC Distribution Width 16.9 % (11.7-14.6)
[2019-09-28 21:04] LABS: ALT 41 U/L (14-59); AST 32 U/L (15-37); Albumin 3.4 g/dL (3.4-5.0); Alkaline Phosphatase 61 U/L (46-116); Anion Gap 12.4 mmol/L (3-11); BUN 10 mg/dL (7-18); Bilirubin, Total 0.3 mg/dL (0.2-1.0); CO2 24.6 mmol/L (21.0-32.0); CREATININE 0.96 mg/dL (0.55-1.02); Calcium 8.8 mg/dL (8.5-10.1); Chloride 104 mmol/L (98-107); Glucose 100 mg/dL (74-106); Potassium 3.1 mmol/L (3.5-5.1); Sodium 141 mmol/L (136-145); Total Protein 7.7 g/dL (6.4-8.2)
[2019-09-28 21:10] LABS: Salicylate < 2.8 mg/dL (2.8-20.0)
[2019-09-28 21:13] LABS: Acetaminophen < 2 ug/mL (10-30)
[2019-09-28 21:30] LABS: *AMPHETAMINES SCREEN URINE Negative (Negative); *BARBITURATES SCREEN URINE Negative (Negative); *BENZODIAZEPINES SCREEN URINE Negative (Negative); Cannabinoids THC Negative (Negative); Cocaine Screen,Urine Negative (Negative); METHADONE URINE SCREEN Negative (Negative); OPIATES URINE SCREEN Negative (Negative)
[2019-09-28] MEDS: POTASSIUM CHLORIDE 10 MEQ/100 ML BAG 100 MEQ IVPB (21:30)
[2019-09-28 21:39] LABS: Tricyclic Antidepressants POSITIVE (Negative)
[2019-09-29] VITALS (200 sets, daily range): BP systolic 105–132; BP diastolic 59–89; PULSE 84–104; RESP 12–27; TEMP 36.7–36.9; O2SAT 96–100
[2019-09-29 07:03] LABS: Anion Gap 9.6 mmol/L (3-11); BUN 7 mg/dL (7-18); CO2 24.4 mmol/L (21.0-32.0); CREATININE 0.73 mg/dL (0.55-1.02); Calcium 8.1 mg/dL (8.5-10.1); Chloride 107 mmol/L (98-107); Glucose 97 mg/dL (74-106); Potassium 3.7 mmol/L (3.5-5.1); Sodium 141 mmol/L (136-145)
--- NOTE | 2019-09-29 08:25 | PDOC.CMIN ---
- If Service Date Differs Date of service: 09/29/19 Time of Service: 08:25
--- NOTE | 2019-09-29 10:57 | PDOC.CMSAFE ---
- If Service Date Differs Date of service: 09/29/19 Time of Service: 10:57 Care Management Safety Plan Sara is admitted to the ICU due to intentional overdose of medications. She has a history of post traumatic stress disorder, boarder line personality disorder and attention deficit disorder, depression, and anxiety. She has had prior overdose attempt in the past year, she is open to [facility] for treatment. Sara is on several medications at home to treat her depression. Sara states she does not want to by suicide and feels she is safe to return home. She has a small puppy at home that brings her krystyna and she does not want to be away. She declines a referral to psychiatric facility and agrees to close follow up with mental health if discharge from the hospital. Sara is appropriate in all interactions since arriving at [facility]; Pt has demonstrated appropriate coping and communication skills, has articulated his or her needs and concerns and is fully engaged during staff interactions. Safety plan has been established with patient, and care team, to adhere to patient goals, identify restrictions based on behavioral status, address nutrition, and determine allowed personal belongings, tools for hygiene and personal care. Determine level of activity including ambulation, level of supervision, visitors, and determine privileges based on behaviors and level of engagement by pt. SAFETY PLAN: 1. Sara will remain on suicide precautions. In Paper Clothes 2. Iris will remain in room under direct supervision of one-on-one staff at all times provided by CPS[employer]; VENESSA, [employer] ENGINEERING TECHNICIAN director new product. 3. Sara may have paper cups, plates, finger foods as well as metal spoon accounted for after her meal. 4. Follow [facility] Management of the Admitted Behavioral Health Patient policy in [facility]. 5. Comfort wipes vs shower with [employer] supervision. 6. No personal belongings at this time. 7. Visitors-No visitors at this time due to COVID - 19 hospital precautions no visitors to be allowed. 8. Iris may have the following activities: Television, coloring books, soft tip markers or crayons, music tablet device, books, and magazines. 9. Bathroom privileges with appropriate supervision. 10. Phone: at the discretion of the primary care team. 11. Due to VOLUNTARY status, if patient wishes to leave [facility], the [facility] child welfare caseworker must be contacted to re-evaluate patient prior to patient exiting the building. Patient is currently voluntarily at [facility]. [facility] has determined that patient does not meet inpatient criteria for psychiatric facility and that Iris will be allowed to return home with her friend Genevieve. [facility] crisis Melisa Argueta will contact friend and determine level of support she can provide prior to Iris discharge. Iris will have close follow up by [facility] over the phone and in person if needed. Iris will plan to follow up with Jimbo Cervantes who is her behavioral support through [facility].
[2019-09-29] MEDS: Gabapentin 300 MG CAP PO (14:01)
--- NOTE | 2019-09-29 14:12 | W.PM.DS.N ---
Date of service: 09/29/19 Time of Service: 14:12 DS: Diagnosis Discharge Diagnosis (1) Drug overdose: Status: Acute Asessment and Plan: Apparent overdose with a handful of sumatriptan 25 mg tablets and six 100 mg amitriptyline tablets. Discharge Plan Disposition Patient Disposition: HOME Condition: Improving Discharge Details Chief Complaint: OD/Poison Clinical Impression: Suicide attempt, Intentional overdose of drug in tablet form Reason For Visit: DRUG OD Admit Date/Time: 09/28/19 21:07 Admit Provider: Chau Britt Attending Provider: Chau Britt Primary Care Provider: Nemo Carl ED Provider: Sudarshan Mccabe Hospital Course Hospital Course: This is a 44-year-old woman who contacted EMS because of psychologic distress. She had an argument with her ex-boyfriend the evening of admission. She said she took a handful of her migraine headache medication and about 6 of her 100 mg amitriptyline pills. She described her motivation for doing this as wanting to make it all go away. She does not specifically admit to any suicidal ideation. She was somewhat obtunded when she came in. Overnight she was monitored and showed no abnormality in her heart rate or rhythm. Her QTc interval remained stable at 433. By the time of discharge she was fully lucid and remorseful of the event. She was seen by mental health, Melisa Argueta, and cleared to return home with further phone follow-up. Her overall plan is to move back to [facility]. Home Meds and New Rx's Prescriptions: Continued ibuprofen 800 mg Tablet 800 mg PO TID PRNRF: 0 sumatriptan succinate 25 mg Tablet 25 mg PO PRN PRNRF: 0 gabapentin 300 mg Capsule 300 mg PO TID RF: 0 omeprazole 20 mg Capsule,Delayed Release(Dr/Ec) 20 mg PO BID RF: 0 epinephrine [EpiPen 2-Mega] 0.3 mg/0.3 mL Auto-Injector 0.3 mg IM ONCE RF: 0 albuterol sulfate [Ventolin HFA] 90 mcg/actuation Hfa Aerosol Inhaler 1 puff INHALATION QID PRNRF: 0 topiramate [Topamax] 50 mg Tablet 50 mg PO BID RF: 0 Alinia 500 mg Tablet 500 mg PO BID RF: 0 venlafaxine 75 mg Tablet Extended Release 24hr 75 mg PO DAILY RF: 0 clonazepam 0.5 MG tablet 0.5 mg PO DAILY RF: 0 ondansetron HCl [Zofran] 4 mg Tablet 4 mg PO QID PRNRF: 0 levonorgestrel-ethinyl estrad [Jolessa] 0.15 mg-30 mcg (91) Tablets,Dose Pack,3 Month 1 tab PO DAILY RF: 0 fluticasone propionate 50 mcg/actuation [place],Suspension 1 spray INTRANASAL DAILY RF: 0 amitriptyline 100 mg Tablet 100 mg PO HS RF: 0 Discharge Instructions Instructions: Adult Overdose (ED) Activity:: Activity as Tolerated Equipment/Supplies:: No Equipment Needed Diet:: As Tolerated Discharge Orders Discharge Orders: Discharge Order (Routine); Ordered 09/29/19 Ordered By: Weor Coker DS: Summary Status at Discharge Functional status at discharge: independent ambulation Overall status at discharge: patient is back to baseline Mental Status: mental status grossly normal Speech and Movement: speech and movement normal Mood: anxious mood Affect: sad Time Spent with Patient providing and/or coordinating discharge services: Greater than 30 minutes Exam Narrative Exam Narrative: Exam on the day of discharge she appeared in no significant distress other than some mild anxiety. Her breathing was not at all labored. Her heart rhythm by monitor was regular and intervals were normal. She was observed ambulating in her room without any apparent neurologic deficits. Psych Mental Status: mental status grossly normal Speech and Movement: speech and movement normal Mood: anxious mood Affect: sad DS: Data Vitals/I&O Vitals and I&O: Vital Signs Temperature 36.9 C 09/29/19 08:00 Temperature Source Temporal Artery Scan 09/29/19 08:00 Pulse 93 H 09/29/19 10:31 Pulse 91 H 09/29/19 04:46 Respiratory Rate 18 09/29/19 10:38 Respiratory Effort Non-Labored 09/29/19 08:00 Respiratory Depth Normal 09/29/19 08:00 Respiratory Pattern Normal 09/29/19 08:00 Blood Pressure 115/68 09/29/19 10:31 Blood Pressure Mean 79 09/29/19 04:46 Blood Pressure Position Supine 09/29/19 04:00 Pulse Oximetry 98 09/29/19 10:38 Oxygen Delivery Method Room Air 09/29/19 04:00 Oxygen Flow Rate 0 09/29/19 04:00 Intake & Output 09/28/19 09/29/19 09/29/19 23:59 11:59 23:59 Intake Total 1100 / 1100 620 / 920 300 / 920 Output Total 500 / 500 Balance 1100 / 1100 120 / 420 300 / 420 Weight 81.193 kg 88.1 kg Intake: IV 1100 / 1100 Oral 620 / 920 300 / 920 Output: Urine 500 / 500 Other: Urine Color Pale Urine Appearance Clear Urine Odor None Comment has not voided since straight cath in E.R. Voiding Methods Toilet Data Completed and Pending Labs on day of discharge: Labs from last 24 hours 09/29/19 09/28/19 09/28/19 06:28 23:25 20:47 WBC RBC Hgb Hct MCV MCH MCHC RDW Plt Count MPV Immature Gran % Neutrophils % Lymphocytes % Monocytes % Eosinophils % Basophils % Absolute Neutrophils Absolute Lymphocytes Absolute Monocytes Absolute Eosinophils Absolute Basophils Sodium 141 Potassium 3.7 Chloride 107 Carbon Dioxide 24.4 Anion Gap 9.6 BUN 7 Creatinine 0.73 Estimated GFR/1.73 m2 >= 60.00 Glucose 97 Calcium 8.1 L Total Bilirubin AST ALT Alkaline Phosphatase Total Protein Albumin Salicylates Urine Opiates Screen Negative Urine Methadone Screen Negative Acetaminophen Ur Barbiturates Screen Negative Ur Tricyclics Screen Positive A Ur Amphetamines Screen Negative U Benzodiazepines Scrn Negative Urine Cocaine Screen Negative Ur THC Screen Negative Ethyl Alcohol Coronavirus (PCR) Pending 09/28/19 09/28/19 09/28/19 20:25 20:25 20:25 WBC 7.20 RBC 4.24 Hgb 9.9 L Hct 33.6 L MCV 79.2 L MCH 23.3 L MCHC 29.5 L RDW 16.9 H Plt Count 411 H MPV 9.1 Immature Gran % 0.1 Neutrophils % 57.2 Lymphocytes % 35.6 Monocytes % 6.3 Eosinophils % 0.7 Basophils % 0.1 Absolute Neutrophils 4.12 Absolute Lymphocytes 2.56 Absolute Monocytes 0.45 Absolute Eosinophils 0.05 Absolute Basophils 0.01 Sodium 141 Potassium 3.1 L Chloride 104 Carbon Dioxide 24.6 Anion Gap 12.4 H BUN 10 Creatinine 0.96 Estimated GFR/1.73 m2 >= 60.00 Glucose 100 Calcium 8.8 Total Bilirubin 0.3 AST 32 ALT 41 Alkaline Phosphatase 61 Total Protein 7.7 Albumin 3.4 Salicylates Urine Opiates Screen Urine Methadone Screen Acetaminophen Ur Barbiturates Screen Ur Tricyclics Screen Ur Amphetamines Screen U Benzodiazepines Scrn Urine Cocaine Screen Ur THC Screen Ethyl Alcohol < 3.0 Coronavirus (PCR) 09/28/19 20:25 WBC RBC Hgb Hct MCV MCH MCHC RDW Plt Count MPV Immature Gran % Neutrophils % Lymphocytes % Monocytes % Eosinophils % Basophils % Absolute Neutrophils Absolute Lymphocytes Absolute Monocytes Absolute Eosinophils Absolute Basophils Sodium Potassium Chloride Carbon Dioxide Anion Gap BUN Creatinine Estimated GFR/1.73 m2 Glucose Calcium Total Bilirubin AST ALT Alkaline Phosphatase Total Protein Albumin Salicylates < 2.8 Urine Opiates Screen Urine Methadone Screen Acetaminophen < 2 Ur Barbiturates Screen Ur Tricyclics Screen Ur Amphetamines Screen U Benzodiazepines Scrn Urine Cocaine Screen Ur THC Screen Ethyl Alcohol Coronavirus (PCR) [facility] Medical History ADD (attention deficit disorder) (Acute) Anxiety (Acute 12/29/17) Borderline personality disorder (Acute 12/29/17) Depression (Acute 12/29/17) Migraine without status migrainosus, not intractable (Acute 12/29/17) Pelvic pain (Acute) Pelvic pain (Acute 12/29/17) intial presentation 03/2017. CT of abd/pelvis. Small ovarian cyst, both R and L side. PTSD (post-traumatic stress disorder) (Acute 12/29/17) Surgical History section (Chronic ~2000) History of tonsillectomy (Chronic) Social History Smoking/Tobacco Use Status: Never Alcohol Intake: current Drug use: Never Substance use type: does not use current occupation: UnEmployed Do you feel safe at home: Yes
[2019-10-01 09:08] LABS: COVID-19 RT-PCR Result Negative (Negative)
== END 2019-09-29 15:30 | disposition home or self-care (01) ==
LOC: ER 21:59 → ICU 09-29 08:22
PROVIDERS: Admitting Provider General Practice; Emergency Provider Student in an Organized Health Care Education/Training Program; PCP Nurse Practitioner; Visit Provider Family Medicine
DX: T42.4X2A Poisoning by benzodiazepines, intentional self-harm, initial encounter (principal); Z63.5 Disruption of family by separation and divorce; E87.6 Hypokalemia
CPT/HCPCS: 36415; 80048; 80053; 80307; 93005; 99217; 99222; 99285; U0003; 80320; 80329; 85025; 93010; 99218; 99283; G0378; J3480